=== PATIENT | female | born 1935 | race Caucasian/White ===

== ENCOUNTER 2016-11-21 08:32 | Observation (INO) | payer MEDICARE, OTHER ==
--- NOTE | 2016-11-21 09:07 | ERPHSYRPT ---
- History of Present Illness Time Seen by Provider: 11/21/16 08:59 Source: patient Exam Limitations: no limitations Patient Subjective Stated Complaint: Pt states she has had a cough, ROSALES, and been short of breath since yesterday. States she has been coughing stuff up but not sure what it looks like. She also states she has been feeling weak. Triage Nursing Assessment: Pt alert and oriented x3. skin pink warm and dry. afebrile. respirations easy and nonlabored. lung sounds clear and diminished Physician History: The patient is an 81-year-old female with her daughter complaining of a cough that was lasting all night. It was productive but she doesn't know what color the sputum was. She was short of breath this morning with exertion. She has been weak and short of breath for several days if not weeks. She denies chest pain. She denies wheezing. She denies shortness of breath when she lies flat on her back. Her past medical history is significant for A. fib, TIA, pneumonia , hypertension, congestive heart failure, high cholesterol, and hypothyroidism. Timing/Duration: yesterday Cough Quality/Degree: moderate, productive cough Possible Cause: occasional episodes Modifying Factors: Improves With: nothing Associated Symptoms: cough, shortness of breath Allergies/Adverse Reactions: cephalexin monohydrate [From Keflex] Allergy (Verified 11/21/16 08:43) clindamycin Allergy (Verified 11/21/16 08:43) diclofenac [Diclofenac] Allergy (Verified 11/21/16 08:43) latex Allergy (Verified 11/21/16 08:43) Home Medications: Bisoprolol Fumarate/Hctz [Ziac 10-6.25 mg Tablet] 1 each PO DAILY 07/07/13 [ History] Bumetanide 0.5 mg PO DAILY 07/07/13 [History] Ergocalciferol (Vitamin D2) [Vitamin D2] 1 tab PO WEEKLY 07/07/13 [History] Levothyroxine Sodium [Synthroid] 25 mcg PO DAILY 07/07/13 [History] Isosorbide Mononitrate 30 mg [Imdur 30 MG] 30 mg PO DAILY 01/31/14 [History ] Hydrocodone Bit/Acetaminophen [[place] 5-325 Tablet] 1 each PO Q4HPRN PRN [History] Magnesium Oxide 400 mg [Mag-Ox 400] 400 mg PO DAILY 02/09/16 [History] Potassium Chloride 20 Meq [Klor-Con 20 MEQ] 20 meq PO DAILY 02/09/16 [History] Apixaban [Eliquis] 5 mg PO DAILY 11/21/16 [History] Pravastatin Sodium 20 mg PO DAILY 11/21/16 [History] Hx Tetanus, Diphtheria Vaccination/Date Given: No Hx Influenza Vaccination/Date Given: Yes Hx Pneumococcal Vaccination/Date Given: Yes - Review of Systems Constitutional: No Fever, No Chills Eyes: No Symptoms Respiratory: Cough, Dyspnea on Exertion (KELLER) Cardiac: No Chest Pain, No Edema, No Syncope Abdominal/Gastrointestinal: No Abdominal Pain, No Nausea, No Vomiting, No Diarrhea Genitourinary Symptoms: No Dysuria Musculoskeletal: No Back Pain, No Neck Pain Skin: No Rash Neurological: No Dizziness, No Focal Weakness, No Sensory Changes Psychological: No Symptoms Endocrine: No Symptoms Hematologic/Lymphatic: No Symptoms Immunological/Allergic: No Symptoms All Other Systems: Reviewed and Negative - Past Medical History Pertinent Past Medical History: Yes Neurological History: No Pertinent History ENT History: No Pertinent History Cardiac History: Arrhythmia, High Cholesterol, Hypertension Respiratory History: Bronchitis, Pneumonia Endocrine Medical History: No Pertinent History Musculoskeletal History: Arthritis GI Medical History: No Pertinent History History: Other Psycho-Social History: No Pertinent History Female Reproductive Disorders: No Pertinent History Other Medical History: URINARY INCONTINENCE - Past Surgical History Past Surgical History: Yes Neuro Surgical History: No Pertinent History Cardiac: No Pertinent History Respiratory: No Pertinent History Gastrointestinal: Other Genitourinary: No Pertinent History Musculoskeletal: Orthopedic Surgery Female Surgical History: No Pertinent History Other Surgical History: HUMEROUS REPAIR, ROTATOR CUFF REPAIR. BLADDER TIE-UP. COLONOSCOPY MAR 04 - Social History Smoking Status: Never smoker Exposure to second hand smoke: No Drug Use: none Patient Lives Alone: No - Female History Hx Now: No - Nursing Vital Signs Nursing Vital Signs: Initial Vital Signs Temperature 98.5 F Temperature Source Oral Pulse Rate 71 Respiratory Rate 18 Blood Pressure [] 126/79 Pain Intensity 0 - Physical Exam General Appearance: no apparent distress, alert Eye Exam: PERRL/EOMI, eyes nml inspection Ears, Nose, Throat Exam: normal ENT inspection, TMs normal, pharynx normal, moist mucous membranes, other (hoarse voice) Neck Exam: normal inspection, non-tender, supple, full range of motion Respiratory Exam: normal breath sounds, lungs clear, No respiratory distress Cardiovascular Exam: irregular Gastrointestinal/Abdomen Exam: soft, No tenderness Pelvic Exam: not done Rectal Exam: not done Back Exam: normal inspection, No CVA tenderness, No vertebral tenderness Extremity Exam: normal inspection, normal range of motion, No pedal edema Neurologic Exam: alert, oriented x 3, cooperative, normal mood/affect, sensation nml, No motor deficits Skin Exam: normal color, warm, dry, No rash Lymphatic Exam: No adenopathy SpO2 Interpretation: normal SpO2: 95 Oxygen Delivery: Room Air - Radiology Exams Chest X-ray Interpretation: Interpreted by me, Other (pulmonary congestion with mild pleural effusion, comp cxr 02/09/16.) Ordered Tests: Active Orders 24 hr Category Date Time Status Bucket Operator STAT Care 11/21/16 08:48 Active IV Insertion STAT Care 11/21/16 08:48 Active Oxygen-ED Only NASAL CANNULA 2 lpm Care 11/21/16 10:33 Active CHEST 2 VIEWS (PA AND LAT) Stat Exams 11/21/16 09:11 Taken CBC W DIFF Stat Lab 11/21/16 09:00 Completed CMP Stat Lab 11/21/16 09:00 Completed Lactic Acid Stat Lab 11/21/16 10:00 Completed NT PRO BNP Stat Lab 11/21/16 09:00 Completed UA W/RFX UR CULTURE Stat Lab 11/21/16 09:37 Completed Medication Summary Discontinued Medications Generic Name Dose Route Start Last Admin Trade Name Freq PRN Reason Stop Dose Admin Furosemide 40 mg 11/21/16 09:59 11/21/16 10:06 Lasix 40 Mg/4 Ml IV 11/21/16 10:00 40 mg STAT ONE Administration Furosemide Confirm 11/21/16 10:05 Lasix 40 Mg/4 Ml Administered 11/21/16 10:06 Dose 40 mg .ROUTE .STK-MED ONE Lab/Rad Data: Laboratory Result Diagrams 11/21/16 09:00 11/21/16 09:00 Laboratory Results 11/21/16 11/21/16 11/21/16 Range/Units 10:00 09:37 09:00 WBC (4.0-10.5) K/mm3 RBC (4.1-5.4) M/mm3 Hgb (12.0-16.0) gm/dl Hct (35-47) % MCV (78-100) fl MCH (26-32) pg MCHC (32-36) g/dl RDW (11.5-14.0) % Plt Count (150-450) K/mm3 MPV (6-9.5) fl Gran % (36.0-66.0) % Lymphocytes % (24.0-44.0) % Monocytes % (0.0-12.0) % Eosinophils % (0.00-5.0) % Basophils % (0.0-0.4) % Basophils # (0-0.4) Sodium 141 (136-145) mEq/L Potassium 3.7 (3.5-5.1) mEq/L Chloride 105 (98-107) mEq/L Carbon Dioxide 25.4 (21-32) mEq/L Anion Gap 14.4 (5-15) MEQ/L BUN 21 H (9-20) mg/dL Creatinine 1.04 (0.55-1.30) mg/dl Estimated GFR 54 ML/MIN Glucose 131 H (70-110) MG/DL Lactic Acid 1.5 (0.4-2.0) Calcium 9.1 (8.5-10.1) mg/dL Total Bilirubin 1.00 (0.2-1.0) mg/dL AST 23 (15-37) U/L ALT 11 L (12-78) U/L Alkaline Phosphatase 65 (46-116) U/L NT-Pro-B Natriuret Pep 1544 H (0-450) pg/ml Serum Total Protein 7.8 (6.4-8.2) gm/dL Albumin 3.3 L (3.4-5.0) g/dL Ur Collection Type VOID Urine Color YELLOW (YELLOW) Urine Appearance CLEAR (CLEAR) Urine pH 6.0 (5-6) Ur Specific [place] 1.010 (1.005-1.025) Urine Protein NEGATIVE (Negative) Urine Glucose (UA) NEGATIVE (NEGATIVE) mg/dL Urine Ketones NEGATIVE (NEGATIVE) Urine Nitrite NEGATIVE (NEGATIVE) Urine Bilirubin NEGATIVE (NEGATIVE) Urine Urobilinogen 0.2 (0-1) mg/dL Urine WBC (Auto) NEGATIVE (NEGATIVE) Urine RBC (Auto) NEGATIVE (0-5) [place]/ul Specimen Received 11/21/16 0940 11/21/16 Range/Units 09:00 WBC 7.1 (4.0-10.5) K/mm3 RBC 3.94 L (4.1-5.4) M/mm3 Hgb 11.8 L (12.0-16.0) gm/dl Hct 36.1 (35-47) % MCV 91.6 (78-100) fl MCH 29.9 (26-32) pg MCHC 32.7 (32-36) g/dl RDW 14.2 H (11.5-14.0) % Plt Count 167 (150-450) K/mm3 MPV 10.1 H (6-9.5) fl Gran % 68.2 H (36.0-66.0) % Lymphocytes % 16.6 L (24.0-44.0) % Monocytes % 11.1 (0.0-12.0) % Eosinophils % 3.8 (0.00-5.0) % Basophils % 0.3 (0.0-0.4) % Basophils # 0.02 (0-0.4) Sodium (136-145) mEq/L Potassium (3.5-5.1) mEq/L Chloride (98-107) mEq/L Carbon Dioxide (21-32) mEq/L Anion Gap (5-15) MEQ/L BUN (9-20) mg/dL Creatinine (0.55-1.30) mg/dl Estimated GFR ML/MIN Glucose (70-110) MG/DL Lactic Acid (0.4-2.0) Calcium (8.5-10.1) mg/dL Total Bilirubin (0.2-1.0) mg/dL AST (15-37) U/L ALT (12-78) U/L Alkaline Phosphatase (46-116) U/L NT-Pro-B Natriuret Pep (0-450) pg/ml Serum Total Protein (6.4-8.2) gm/dL Albumin (3.4-5.0) g/dL Ur Collection Type Urine Color (YELLOW) Urine Appearance (CLEAR) Urine pH (5-6) Ur Specific [place] (1.005-1.025) Urine Protein (Negative) Urine Glucose (UA) (NEGATIVE) mg/dL Urine Ketones (NEGATIVE) Urine Nitrite (NEGATIVE) Urine Bilirubin (NEGATIVE) Urine Urobilinogen (0-1) mg/dL Urine WBC (Auto) (NEGATIVE) Urine RBC (Auto) (0-5) [place]/ul Specimen Received - Progress Progress: improved Air Movement: good Blood Culture(s) Obtained: No Antibiotics given: No Discussed with : Zhanna Ghosh Will see patient in: hospital (observation) Counseled pt/family regarding: lab results, diagnosis, rad results - Departure Time of Disposition: 11:56 Departure Disposition: Observation Clinical Impression: CHF (congestive heart failure) Condition: Stable Critical Care Time: No Instructions: Heart Failure Additional Instructions: You have shortness of breath that is caused by fluid overload that is mild in your lungs. You were given Lasix 40 mg IV in the ER. He will be admitted to the hospital.
[2016-11-21 09:17] LABS: BASOPHIL % 0.3 % (0.0-0.4); Eosinophil % 3.8 % (0.00-5.0); Granulocytes % 68.2 % (36.0-66.0); Lymphocytes % 16.6 % (24.0-44.0); Mean Cell Volume 91.6 fl (78-100); Mean Corpuscular Hemoglobin 29.9 pg (26-32); Mean Platelet Volume 10.1 fl (6-9.5); Monocytes % 11.1 % (0.0-12.0); Platelet Count 167 K/mm3 (150-450); Red Blood Count 3.94 M/mm3 (4.1-5.4); Red Cell Distribution Width 14.2 % (11.5-14.0); White Blood Count 7.1 K/mm3 (4.0-10.5)
[2016-11-21 09:32] LABS: ALBUMIN 3.3 g/dL (3.4-5.0); ANION GAP 14.4 MEQ/L (5-15); Carbon Dioxide 25.4 mEq/L (21-32); Potassium 3.7 mEq/L (3.5-5.1); Total Protein 7.8 gm/dL (6.4-8.2)
[2016-11-21 09:42] LABS: ADD URINE CULTURE? NO (NO); COMPLETE URINE MICROSCOPIC? NO; Collection Type VOID
[2016-11-21] MEDS ORDERED: Lasix 40 MG/4 ML IV ONE (09:59)
[2016-11-21] MEDS ORDERED: Lasix 40 MG/4 ML ONE (10:05)
[2016-11-21] MEDS ORDERED: Sodium Chloride 0.9% 10 ML FLUSH Syringe IV PRN (13:08)
[2016-11-21] MEDS: Sodium Chloride 0.9% 10 ML FLUSH Syringe IV SCH ×2 (13:20→22:44)
--- NOTE | 2016-11-21 16:07 | XRAY ---
Indication: Cough, weakness, and short of breath. Comparison: February 09, 2016. PA/lateral chest unchanged again hyperinflated with chronic lung markings and minimal bibasilar fibrosis/scarring. The heart is again borderline enlarged. Vascularity normal. Bony thorax intact again with osteopenia and degenerative changes. Impression: Stable nonacute chest with chronic features.
[2016-11-21] MEDS: Lasix 20 MG/2 ML IV SCH (17:26)
[2016-11-21] MEDS ORDERED: PROVENTIL 2.5 MG/3 ML NEB IH PRN (19:31)
[2016-11-21] MEDS ORDERED: NORCO 5/325 MG PO PRN (19:34)
[2016-11-21] MEDS: PROVENTIL 2.5 MG/3 ML NEB IH SCH (19:48)
[2016-11-21] MEDS: ZOCOR 20MG PO SCH (22:44)
[2016-11-21] MEDS: THERAGRAN MULTIVITAMIN PO SCH (22:44)
[2016-11-22 05:39] LABS: BASOPHIL % 0.4 % (0.0-0.4); Eosinophil % 4.1 % (0.00-5.0); Granulocytes % 63.6 % (36.0-66.0); Lymphocytes % 19.9 % (24.0-44.0); Mean Cell Volume 91.1 fl (78-100); Mean Corpuscular Hemoglobin 29.7 pg (26-32); Mean Platelet Volume 9.7 fl (6-9.5); Platelet Count 167 K/mm3 (150-450); Red Blood Count 4.04 M/mm3 (4.1-5.4); White Blood Count 7.3 K/mm3 (4.0-10.5)
[2016-11-22 06:04] LABS: ANION GAP 13.3 MEQ/L (5-15); BLOOD UREA NITROGEN 17 mg/dL (9-20); CHLORIDE 102 mEq/L (98-107); Carbon Dioxide 28.5 mEq/L (21-32); Glucose 108 MG/DL (70-110); Potassium 3.6 mEq/L (3.5-5.1); SODIUM 140 mEq/L (136-145)
--- NOTE | 2016-11-22 06:38 | PCM.HP ---
History of Present Illness - Chief Complaint Chief Complaint: c/o shortness of breath for 1-2 days History of Present Illness: The patient is an 81-year-old female with her daughter complaining of a cough that was lasting all night. It was productive but she doesn't know what color the sputum was. She was short of breath this morning with exertion. She has been weak and short of breath for several days if not weeks. She denies chest pain. She denies wheezing. She denies shortness of breath when she lies flat on her back. - Review of Systems Constitutional: No Fever, No Chills Eyes: No Symptoms Ears, Nose, & Throat: No Symptoms Respiratory: Cough, Orthopnea, Short Of Breath, Wheezing Cardiac: Orthopnea, No Chest Pain, No Edema, No Syncope Abdominal/Gastrointestinal: No Abdominal Pain, No Nausea, No Vomiting, No Diarrhea Genitourinary Symptoms: No Dysuria Musculoskeletal: No Back Pain, No Neck Pain Skin: No Rash Neurological: No Dizziness, No Focal Weakness, No Sensory Changes Psychological: No Symptoms Endocrine: No Symptoms Hematologic/Lymphatic: No Symptoms Immunological/Allergic: No Symptoms Medications & Allergies Home Medications: Home Medication List Bisoprolol Fumarate/Hctz [Ziac 10-6.25 mg Tablet] 1 each PO DAILY 07/07/13 [ History Confirmed 11/21/16] Bumetanide 0.5 mg PO DAILY 07/07/13 [History Confirmed 11/21/16] Ergocalciferol (Vitamin D2) [Vitamin D2] 1 tab PO WEEKLY 07/07/13 [History Confirmed 11/21/16] Levothyroxine Sodium [Synthroid] 25 mcg PO DAILY 07/07/13 [History Confirmed 09/04] Isosorbide Mononitrate 30 mg [Imdur 30 MG] 30 mg PO DAILY 01/31/14 [ History Confirmed 11/21/16] Hydrocodone Bit/Acetaminophen [[place] 5-325 Tablet] 1 each PO Q4HPRN PRN [History Confirmed 11/21/16] Magnesium Oxide 400 mg [Mag-Ox 400] 400 mg PO DAILY 02/09/16 [History Confirmed 11/21/16] Potassium Chloride 20 Meq [Klor-Con 20 MEQ] 20 meq PO DAILY 02/09/16 [History Confirmed 11/21/16] Apixaban [Eliquis] 5 mg PO DAILY 11/21/16 [History Confirmed 11/21/16] Multivitamin [Multivitamins] 1 each PO HS 11/21/16 [History Confirmed 11/21/16] Pravastatin Sodium 20 mg PO HS 11/21/16 [History Confirmed 11/21/16] Allergies/Adverse Reactions: Allergies Allergy/AdvReac Type Severity Reaction Status Date / Time cephalexin monohydrate Allergy Verified 11/21/16 08:43 [From Keflex] clindamycin Allergy Verified 11/21/16 08:43 diclofenac [Diclofenac] Allergy Verified 11/21/16 08:43 latex Allergy Verified 11/21/16 08:43 - Past Medical History Past Medical History: Yes Neurological History: No Pertinent History ENT History: No Pertinent History Cardiac History: Arrhythmia, High Cholesterol, Hypertension Respiratory History: Bronchitis, Pneumonia Endocrine Medical History: No Pertinent History Musculoskelatal History: Arthritis GI Medical History: No Pertinent History History: Other Pyscho-Social History: No Pertinent History Reproductive Disorders: No Pertinent History Comment: URINARY INCONTINENCE - Female History Are you now?: No - Past Surgical History Past Surgical History: Yes Neuro Surgical History: No Pertinent History Cardiac History: No Pertinent History Respiratory Surgery: No Pertinent History GI Surgical History: Other Genitourinary Surgical Hx: No Pertinent History Musculskeletal Surgical Hx: Orthopedic Surgery Female Surgical History: No Pertinent History Other Surgical History: HUMEROUS REPAIR, ROTATOR CUFF REPAIR. BLADDER TIE-UP. COLONOSCOPY FEB 14 - Social History Smoking Status: Never smoker Exposure to second hand smoke: No Alcohol: None Drug Use: none - Physical Exam Vital Signs: Vital Signs - 24 hr Temp Pulse Resp BP Pulse Ox 11/22/16 04:15 98.5 F 89 18 122/80 92 L 11/22/16 00:13 99.4 F 85 18 139/66 91 L 11/21/16 20:36 97.9 F 74 18 140/61 97 11/21/16 19:48 80 18 92 L 11/21/16 16:24 98.0 F 76 18 120/59 96 11/21/16 14:49 88 L 11/21/16 13:13 80 18 94 L 11/21/16 12:44 98.0 F 84 18 148/81 97 11/21/16 12:31 98.0 F 84 145/81 11/21/16 12:27 98.0 F 84 18 145/81 97 11/21/16 12:05 95 11/21/16 11:40 78 18 154/81 95 11/21/16 10:21 71 18 126/79 97 11/21/16 08:33 98.5 F 94 H 24 132/77 95 Oxygen-Last 24 hours O2 Percentage 3 Liters = 32% O2 Percentage 3 Liters = 32% O2 Percentage 3 Liters = 32% O2 Percentage 2 Liters = 28% O2 Percentage 2 Liters = 28% O2 Percentage 2 Liters = 28% General Appearance: no apparent distress, alert Neurologic Exam: alert, oriented x 3, cooperative, normal mood/affect, nml cerebellar function, nml station & gait, sensation nml, No motor deficits Eye Exam: PERRL/EOMI, eyes nml inspection Ears, Nose, Throat Exam: normal ENT inspection, TMs normal, pharynx normal, moist mucous membranes Neck Exam: normal inspection, non-tender, supple, full range of motion Respiratory Exam: wheezing, No respiratory distress Cardiovascular Exam: regular rate/rhythm, normal heart sounds, normal peripheral pulses Gastrointestinal/Abdomen Exam: soft, normal bowel sounds, No tenderness, No mass Back Exam: normal inspection, normal range of motion, No CVA tenderness, No vertebral tenderness Extremity Exam: normal inspection, normal range of motion, pelvis stable Skin Exam: normal color, warm, dry, No rash Lymphatic Exam: No adenopathy Results - Labs Lab/Micro Results: Lab Results-Last 24 Hours 11/22/16 11/22/16 Range/Units 05:20 05:20 WBC 7.3 (4.0-10.5) K/mm3 RBC 4.04 L (4.1-5.4) M/mm3 Hgb 12.0 (12.0-16.0) gm/dl Hct 36.8 (35-47) % MCV 91.1 (78-100) fl MCH 29.7 (26-32) pg MCHC 32.6 (32-36) g/dl RDW 14.0 (11.5-14.0) % Plt Count 167 (150-450) K/mm3 MPV 9.7 H (6-9.5) fl Gran % 63.6 (36.0-66.0) % Lymphocytes % 19.9 L (24.0-44.0) % Monocytes % 12.0 (0.0-12.0) % Eosinophils % 4.1 (0.00-5.0) % Basophils % 0.4 (0.0-0.4) % Basophils # 0.03 (0-0.4) Sodium 140 (136-145) mEq/L Potassium 3.6 (3.5-5.1) mEq/L Chloride 102 (98-107) mEq/L Carbon Dioxide 28.5 (21-32) mEq/L Anion Gap 13.3 (5-15) MEQ/L BUN 17 (9-20) mg/dL Creatinine 0.90 (0.55-1.30) mg/dl Estimated GFR > 60 ML/MIN Glucose 108 (70-110) MG/DL Calcium 9.1 (8.5-10.1) mg/dL - Other Procedures and Tests Respiratory Therapy 11/21/16 19:00 Respiratory Nebulizer QID 11/21/16 19:50 Respiratory Nebulizer PRN Assessment/Plan (1) CHF (congestive heart failure) Current Visit: Yes Status: Acute Qualifiers: Congestive heart failure type: combined Congestive heart failure chronicity : acute on chronic Qualified Code(s): I50.43 - Acute on chronic combined systolic (congestive) and diastolic (congestive) heart failure Assessment & Plan: Last Vital Signs Temp 98.5 F 11/22/16 04:15 Pulse 89 11/22/16 04:15 Resp 18 11/22/16 04:15 BP 122/80 11/22/16 04:15 Pulse Ox 92 L 11/22/16 04:15 Allergies cephalexin monohydrate [From Keflex] Allergy (Verified 11/21/16 08:43) clindamycin Allergy (Verified 11/21/16 08:43) diclofenac [Diclofenac] Allergy (Verified 11/21/16 08:43) latex Allergy (Verified 11/21/16 08:43) Active Medications Hydrocodone Bitart/Acetaminophen ([place] 5/325 Mg) 1 tab PO Q4H PRN PRN PRN Reason: PAIN Stop: 11/26/16 19:33 Albuterol Sulfate (Proventil 2.5 Mg/3 Ml Neb) 2.5 mg IH Q4H PRN PRN PRN Reason: SHORTNESS OF BREATH/WHEEZING Stop: 12/21/16 19:30 Albuterol Sulfate (Proventil 2.5 Mg/3 Ml Neb) 2.5 mg IH QIDRT [place] Stop: 12/22/16 06:59 Last Admin: 11/21/16 19:48 Dose: 2.5 mg Furosemide (Lasix 20 Mg/2 Ml) 20 mg IV BID DIURETIC [place] Stop: 12/21/16 16:59 Last Admin: 11/21/16 17:26 Dose: 20 mg Multivitamins (Theragran Multivitamin) 1 tab PO HS [place] Stop: 12/21/16 21:59 Last Admin: 11/21/16 22:44 Dose: 1 tab Pneumococcal 13-Valent Conj Vacc (Prevnar 13 Syringe) 0.5 ml IM .ONCE ONE Stop: 11/22/16 10:01 Simvastatin (Zocor 20mg) 20 mg PO [facility] Stop: 12/21/16 21:59 Last Admin: 11/21/16 22:44 Dose: 20 mg Sodium Chloride (Sodium Chloride 0.9% 10 Ml Flush Syringe) 10 ml IV Q8HT [place] Stop: 12/21/16 13:59 Last Admin: 11/21/16 22:44 Dose: 10 ml Sodium Chloride (Sodium Chloride 0.9% 10 Ml Flush Syringe) 10 ml IV PRN PRN Stop: 12/21/16 13:07 Intake & Output 11/21/16 11/22/16 11:59 11:59 Intake Total 1100 Output Total 1050 Balance 50 Weight 74.843 kg 78.103 kg Orders 11/21/16 13:37 Humidifier Attendant/Discharge Plan ROUTINE Nutritional Admission Screen once Lab Tests 11/21/16 11/21/16 11/21/16 09:00 09:00 09:37 WBC 7.1 RBC 3.94 L Hgb 11.8 L Hct 36.1 MCV 91.6 MCH 29.9 MCHC 32.7 RDW 14.2 H Plt Count 167 MPV 10.1 H Gran % 68.2 H Lymphocytes % 16.6 L Monocytes % 11.1 Eosinophils % 3.8 Basophils % 0.3 Basophils # 0.02 Sodium 141 Potassium 3.7 Chloride 105 Carbon Dioxide 25.4 Anion Gap 14.4 BUN 21 H Creatinine 1.04 Estimated GFR 54 Glucose 131 H Lactic Acid Calcium 9.1 Total Bilirubin 1.00 AST 23 ALT 11 L Alkaline Phosphatase 65 NT-Pro-B Natriuret Pep 1544 H Serum Total Protein 7.8 Albumin 3.3 L Ur Collection Type VOID Urine Color YELLOW Urine Appearance CLEAR Urine pH 6.0 Ur Specific [place] 1.010 Urine Protein NEGATIVE Urine Glucose (UA) NEGATIVE Urine Ketones NEGATIVE Urine Nitrite NEGATIVE Urine Bilirubin NEGATIVE Urine Urobilinogen 0.2 Urine WBC (Auto) NEGATIVE Urine RBC (Auto) NEGATIVE Specimen Received 11/21/16 0940 11/21/16 11/22/16 11/22/16 10:00 05:20 05:20 WBC 7.3 RBC 4.04 L Hgb 12.0 Hct 36.8 MCV 91.1 MCH 29.7 MCHC 32.6 RDW 14.0 Plt Count 167 MPV 9.7 H Gran % 63.6 Lymphocytes % 19.9 L Monocytes % 12.0 Eosinophils % 4.1 Basophils % 0.4 Basophils # 0.03 Sodium 140 Potassium 3.6 Chloride 102 Carbon Dioxide 28.5 Anion Gap 13.3 BUN 17 Creatinine 0.90 Estimated GFR > 60 Glucose 108 Lactic Acid 1.5 Calcium 9.1 Total Bilirubin AST ALT Alkaline Phosphatase NT-Pro-B Natriuret Pep Serum Total Protein Albumin Ur Collection Type Urine Color Urine Appearance Urine pH Ur Specific [place] Urine Protein Urine Glucose (UA) Urine Ketones Urine Nitrite Urine Bilirubin Urine Urobilinogen Urine WBC (Auto) Urine RBC (Auto) Specimen Received Code(s): I50.9 - HEART FAILURE, UNSPECIFIED (2) Exertional dyspnea Current Visit: Yes Status: Acute Code(s): R06.09 - OTHER FORMS OF DYSPNEA
[2016-11-22] MEDS: PROVENTIL 2.5 MG/3 ML NEB IH SCH ×4 (07:19→19:24)
[2016-11-22] MEDS ORDERED: ERGOCALCIFEROL PO SCH (08:00)
[2016-11-22] MEDS ORDERED: MEDICATION INTERVENTION MC PRN (09:08)
[2016-11-22] MEDS: Imdur 30 MG PO SCH (09:42)
[2016-11-22] MEDS: ELIQUIS PO SCH (09:42)
[2016-11-22] MEDS: SYNTHROID 25 MCG PO SCH (09:42)
[2016-11-22] MEDS: MAG-OX 400 PO SCH (09:42)
[2016-11-22] MEDS: Klor Con 10 MEQ PO SCH (09:42)
[2016-11-22] MEDS: Lasix 20 MG/2 ML IV SCH ×2 (09:43→16:45)
[2016-11-22] MEDS ORDERED: BISOPROLOL FUMARATE PO SCH (10:00)
[2016-11-22] MEDS ORDERED: VITAMIN D PO SCH (10:00)
[2016-11-22] MEDS ORDERED: PREVNAR 13 SYRINGE IM ONE (10:00)
[2016-11-22] MEDS ORDERED: NON-FORMULARY ITEM (Potassium Chloride 20 Meq [Klor-Con 20 Meq] 20 MEQ) PO SCH (10:00)
[2016-11-22] MEDS ORDERED: HCTZ PO SCH (10:00)
[2016-11-22] MEDS: Sodium Chloride 0.9% 10 ML FLUSH Syringe IV SCH ×3 (10:54→22:56)
[2016-11-22] MEDS: Tessalon Perles 100 MG PO PRN (16:13)
[2016-11-22] MEDS: THERAGRAN MULTIVITAMIN PO SCH (22:56)
[2016-11-22] MEDS: ZOCOR 20MG PO SCH (22:56)
[2016-11-23] MEDS: Tessalon Perles 100 MG PO PRN (05:21)
[2016-11-23] MEDS: PROVENTIL 2.5 MG/3 ML NEB IH SCH (06:21)
[2016-11-23] MEDS: Imdur 30 MG PO SCH (09:54)
[2016-11-23] MEDS: ELIQUIS PO SCH (09:54)
[2016-11-23] MEDS: Klor Con 10 MEQ PO SCH (09:54)
[2016-11-23] MEDS: SYNTHROID 25 MCG PO SCH (09:54)
[2016-11-23] MEDS: MAG-OX 400 PO SCH (09:54)
[2016-11-23] MEDS: Lasix 20 MG/2 ML IV SCH (09:55)
[2016-11-23 11:31] VITALS: BP 120/58; PULSE 103; O2SAT 93
--- NOTE | 2016-11-23 14:10 | PCM.DS ---
Discharge Summary Date of Admission: 11/21/16 12:20 Admitting Physician: RAUL GAYTAN Primary Care Provider: RAUL GAYTAN Allergies Allergies cephalexin monohydrate [From Keflex] Allergy (Verified 11/21/16 08:43) clindamycin Allergy (Verified 11/21/16 08:43) diclofenac [Diclofenac] Allergy (Verified 11/21/16 08:43) latex Allergy (Verified 11/21/16 08:43) Hospital Summary - Hospital Course Hospital Course: Chief Complaint Diagnosis c/o shortness of breath for 1-2 days Allergies Allergy/AdvReac Type Severity Reaction Status Date / Time cephalexin monohydrate Allergy Verified 11/21/16 08:43 [From Keflex] clindamycin Allergy Verified 11/21/16 08:43 diclofenac [Diclofenac] Allergy Verified 11/21/16 08:43 latex Allergy Verified 11/21/16 08:43 Vital Signs (Last 24 hours) Temp Pulse Resp BP Pulse Ox 11/23/16 11:30 98.4 F 103 H 18 120/58 93 L 11/23/16 10:59 100 H 18 95 11/23/16 06:59 98.5 F 106 H 18 122/57 96 11/23/16 06:21 104 H 18 97 11/23/16 04:25 97.8 F 110 H 24 142/66 95 11/23/16 04:00 25 H 95 11/22/16 23:50 98.1 F 111 H 25 H 128/60 95 11/22/16 19:58 97.9 F 95 H 20 133/61 95 11/22/16 16:00 98.4 F 96 H 18 135/81 93 L 11/22/16 15:31 82 18 96 Home Medications Medication Instructions Recorded Confirmed Last Taken Type Apixaban [Eliquis] 5 mg PO DAILY 11/21/16 11/21/16 11/21/16 History Multivitamin [Multivitamins] 1 each PO 11/21/16 11/21/16 11/21/16 History Pravastatin Sodium 20 mg PO 11/21/16 11/21/16 11/20/16 History Current Medications Generic Name Dose Route Start Last Admin Trade Name Freq PRN Reason Stop Dose Admin Hydrocodone Bitart/Acetaminophen 1 tab 11/21/16 19:34 [place] 5/325 Mg PO 11/26/16 19:33 Q4H PRN PRN PAIN Albuterol Sulfate 2.5 mg 11/21/16 19:31 Proventil 2.5 Mg/3 Ml Neb IH 12/21/16 19:30 Q4H PRN PRN SHORTNESS OF BREATH/WHEEZING Apixaban 5 mg 11/22/16 10:00 11/23/16 09:54 Eliquis PO 12/22/16 09:59 5 mg DAILY AUGUSTIN Administration Benzonatate 100 mg 11/22/16 14:43 11/23/16 05:21 Tessalon Perles 100 Mg PO 12/22/16 14:42 100 mg TID PRN PRN Administration COUGH Cholecalciferol 2,000 unit 11/22/16 10:00 11/22/16 09:43 Vitamin D PO 12/22/16 09:59 2,000 unit Calderon AUGUSTIN Administration Furosemide 20 mg 11/21/16 17:00 11/23/16 09:55 Lasix 20 Mg/2 Ml IV 12/21/16 16:59 20 mg BID DIURETIC AUGUSTIN Administration Isosorbide Mononitrate 30 mg 11/22/16 10:00 11/23/16 09:54 Imdur 30 Mg PO 12/22/16 09:59 30 mg DAILY AUGUSTIN Administration Levothyroxine Sodium 25 mcg 11/22/16 10:00 11/23/16 09:54 Synthroid 25 Mcg PO 12/22/16 09:59 25 mcg DAILY AUGUSTIN Administration Magnesium Oxide 400 mg 11/22/16 10:00 11/23/16 09:54 Mag-Ox 400 PO 12/22/16 09:59 400 mg DAILY AUGUSTIN Administration Multivitamins 1 tab 11/21/16 22:00 11/22/16 22:56 Theragran Multivitamin PO 12/21/16 21:59 1 tab HS AUGUSTIN Administration Potassium Chloride 20 meq 11/22/16 10:00 11/23/16 09:54 Klor Con 10 Meq PO 12/22/16 09:59 20 meq DAILY AUGUSTIN Administration Simvastatin 20 mg 11/21/16 22:00 11/22/16 22:56 Zocor 20mg PO 12/21/16 21:59 20 mg HS AUGUSTIN Administration Sodium Chloride 10 ml 11/21/16 14:00 11/22/16 22:56 Sodium Chloride 0.9% 10 Ml Flush Syringe IV 12/21/16 13:59 10 ml Q8HT AUGUSTIN Administration Sodium Chloride 10 ml 11/21/16 13:08 11/23/16 09:57 Sodium Chloride 0.9% 10 Ml Flush Syringe IV 12/21/16 13:07 10 ml PRN PRN Administration Discontinued Medications Generic Name Dose Route Start Last Admin Trade Name Freq PRN Reason Stop Dose Admin Albuterol Sulfate 2.5 mg 11/22/16 07:00 11/23/16 06:21 Proventil 2.5 Mg/3 Ml Neb IH 12/22/16 06:59 2.5 mg QIDRT AUGUSTIN Administration Furosemide 40 mg 11/21/16 09:59 11/21/16 10:06 Lasix 40 Mg/4 Ml IV 11/21/16 10:00 40 mg STAT ONE Administration Furosemide Confirm 11/21/16 10:05 Lasix 40 Mg/4 Ml Administered 11/21/16 10:06 Dose 40 mg .ROUTE .STK-MED ONE Pneumococcal 13-Valent Conj Vacc 0.5 ml 11/22/16 10:00 11/22/16 09:43 Prevnar 13 Syringe IM 11/22/16 10:01 0.5 ml .ONCE ONE Administration Intake & Output (Last 24 hours) 11/21/16 11/22/16 11/23/16 11/24/16 11:59 11:59 11:59 11:59 Intake Total 1580 1600 280 Output Total 1350 800 200 Balance 230 800 80 Weight 74.843 kg 78.103 kg 78.103 kg Orders (Last 24 hours) Category Date Time Status Benzonatate 100 mg [Tessalon Perles 100 MG] Med 11/22/16 14:43 Active 100 mg PO TID PRN PRN Patient Care Notes (Last 24 hours) 11/23/16 09:28 Case Management Note by Elle Conley DISCHARGE PLAN REVIEWED, CONTINUES TO PLAN TO RETURN HOME TO PRE EPISODIC LEVEL OF [facility]. LIVES AT HOME WITH AND INDEPENDENT WITH ALL ADL'S. Initialized on 11/23/16 09:28 - END OF NOTE 11/22/16 17:00 (created 11/22/16 19:24) Nursing Note by Daniela Lopez Noted less cough. Initialized on 11/22/16 19:24 - END OF NOTE 11/22/16 14:44 Nursing Note by Daniela Lopez Called Dr Laguerre concerning pt's c/o cough. New order received. Initialized on 11/22/16 14:44 - END OF NOTE - Vitals & Intake/Output Vital Signs: Vital Signs Temperature 98.4 F 11/23/16 11:30 Pulse Rate 103 H 11/23/16 11:30 Respiratory Rate 18 11/23/16 11:30 Blood Pressure 120/58 11/23/16 11:30 O2 Sat by Pulse Oximetry 93 L 11/23/16 11:30 Oxygen-Last Documented O2 Percentage 2 Liters = 28% Intake & Output: Intake & Output 11/21/16 11/22/16 11/23/16 11/24/16 11:59 11:59 11:59 11:59 Intake Total 1580 1600 280 Output Total 1350 800 200 Balance 230 800 80 Weight 78.103 kg 78.103 kg - Lab Result Diagrams: 11/22/16 05:20 11/22/16 05:20 - Procedures and Test Procedures and Tests throughout Hospitalization: Therapy Orders & Screens 11/21/16 19:50 Respiratory Nebulizer PRN Comment: ALBUTEROL Q4PRN FOR SOB/WHEEZING Diagnosis: CHF 11/21/16 19:51 Respiratory Therapy Consult ROUTINE Comment: Reason For Exam: Diagnosis: CHF Discharge Exam General Appearance: no apparent distress, alert Neurologic Exam: alert, oriented x 3, cooperative, normal mood/affect, nml cerebellar function, sensation nml, No motor deficits Skin Exam: normal color, warm, dry Eye Exam: PERRL, EOMI, eyes nml inspection Ears, Nose, Throat Exam: normal ENT inspection, pharynx normal, moist mucous membranes Neck Exam: normal inspection, non-tender, supple, full range of motion Respiratory Exam: normal breath sounds, lungs clear, No respiratory distress Cardiovascular Exam: regular rate/rhythm, normal heart sounds Gastrointestinal/Abdomen Exam: soft, No tenderness, No mass Extremity Exam: normal inspection, normal range of motion Back Exam: normal inspection, normal range of motion, No CVA tenderness, No vertebral tenderness Pelvic Exam: deferred Rectal Exam: deferred Final Diagnosis/Problem List - Final Discharge Diagnosis/Problem (1) CHF (congestive heart failure) Current Visit: Yes Status: Resolved (2) Exertional dyspnea Current Visit: Yes Status: Resolved - Discharge Discharge Date: 11/23/16 Disposition: Home, Self-Care Condition: Stable Prescriptions: No Action Bumetanide 0.5 mg PO DAILY Levothyroxine Sodium [Synthroid] 25 mcg PO DAILY Bisoprolol Fumarate/Hctz [Ziac 10-6.25 mg Tablet] 1 each PO DAILY Ergocalciferol (Vitamin D2) [Vitamin D2] 1 tab PO WEEKLY Isosorbide Mononitrate 30 mg [Imdur 30 MG] 30 mg PO DAILY Magnesium Oxide 400 mg [Mag-Ox 400] 400 mg PO DAILY Potassium Chloride 20 Meq [Klor-Con 20 MEQ] 20 meq PO DAILY Hydrocodone Bit/Acetaminophen [[place] 5-325 Tablet] 1 each PO Q4HPRN PRN PRN Reason: Pain Pravastatin Sodium 20 mg PO HS Apixaban [Eliquis] 5 mg PO DAILY Multivitamin [Multivitamins] 1 each PO HS Instructions: Heart Failure Additional Instructions: Follow up with at [facility] Follow up with: RAUL GAYTAN MD [Primary Care Provider] - 11/30/16 11:15 am Forms: Discharge Instructions
== END 2016-11-23 14:55 | disposition home or self-care (01) ==
LOC: ED 08:32 → MED SURG 12:20
PROVIDERS: ADMIT General Practice; ATTEND General Practice
DX: I50.43 Acute on chronic combined systolic (congestive) and diastolic (congestive) heart failure (principal); I10 Essential (primary) hypertension; E78.00 Pure hypercholesterolemia, unspecified; M19.90 Unspecified osteoarthritis, unspecified site; I48.91 Unspecified atrial fibrillation; Z79.01 Long term (current) use of anticoagulants; Z86.73 Personal history of transient ischemic attack (TIA), and cerebral infarction without residual deficits; E03.9 Hypothyroidism, unspecified; Z79.899 Other long term (current) drug therapy; Z23 Encounter for immunization
CPT/HCPCS: 36000; 36415; 71020; 80048; 80053; 81002; 83605; 83880; 85025; 90670; 93041; 93268; 94640; 94760; 96374; 99285; G0009; G0378; J1940; A9270-GY

== ENCOUNTER 2016-12-19 19:51 | Observation (INO) | payer MEDICARE, OTHER ==
[2016-12-19] MEDS ORDERED: BABY ASPIRIN 81 MG CHEW PO ONE (20:12)
--- NOTE | 2016-12-19 20:12 | ERPHSYRPT ---
- History of Present Illness Time Seen by Provider: 12/19/16 20:07 Historian: patient, family Exam Limitations: no limitations Physician History: 81 yr old female reports that she was in hosp 1 month ago for CHF- no hx of procedures, but developed CP today momentary x 2 and no CP now; now no symptoms but came to be evaluated. Timing/Duration: today Activities at Onset: none Quality: sharpness, stabbing Location: shoulder Chest Pain Radiation: arm Severity of Pain-Max: moderate Severity of Pain-Current: moderate Modifying Factors: Improves With: nothing Associated Symptoms: denies symptoms Prior Chest Pain/Cardiac Workup: no prior chest pain, recently seen/treated, recent hospitalization Nitro Today/Relief: no nitro taken today Aspirin Treatment Today: 81 mg x 4, provided by ED Allergies/Adverse Reactions: cephalexin monohydrate [From Keflex] Allergy (Verified 12/19/16 20:14) clindamycin Allergy (Verified 12/19/16 20:14) diclofenac [Diclofenac] Allergy (Verified 12/19/16 20:14) latex Allergy (Verified 12/19/16 20:14) Home Medications: Bisoprolol Fumarate/Hctz [Ziac 10-6.25 mg Tablet] 1 each PO DAILY 07/07/13 [ History] Bumetanide 1 mg PO DAILY 07/07/13 [History] Ergocalciferol (Vitamin D2) [Vitamin D2] 1 tab PO WEEKLY 07/07/13 [History] Levothyroxine Sodium [Synthroid] 25 mcg PO DAILY 07/07/13 [History] Isosorbide Mononitrate 30 mg [Imdur 30 MG] 30 mg PO DAILY 01/31/14 [History ] Hydrocodone Bit/Acetaminophen [[place] 5-325 Tablet] 1 each PO Q4HPRN PRN [History] Magnesium Oxide 400 mg [Mag-Ox 400] 400 mg PO HS 02/09/16 [History] Potassium Chloride 20 Meq [Klor-Con 20 MEQ] 20 meq PO DAILY 02/09/16 [History] Apixaban [Eliquis] 5 mg PO DAILY 11/21/16 [History] Multivitamin [Multivitamins] 1 each PO HS 11/21/16 [History] Pravastatin Sodium 20 mg PO HS 11/21/16 [History] Hx Tetanus, Diphtheria Vaccination/Date Given: No Hx Influenza Vaccination/Date Given: Yes Hx Pneumococcal Vaccination/Date Given: Yes - Review of Systems Constitutional: No Fever, No Chills Eyes: No Symptoms Ears, Nose, & Throat: No Symptoms Respiratory: No Cough, No Dyspnea Cardiac: Chest Pain, No Edema, No Syncope Abdominal/Gastrointestinal: No Abdominal Pain, No Nausea, No Vomiting, No Diarrhea Genitourinary Symptoms: No Dysuria Musculoskeletal: No Back Pain, No Neck Pain Skin: No Rash Neurological: No Dizziness, No Focal Weakness, No Sensory Changes Psychological: No Symptoms Endocrine: No Symptoms All Other Systems: Reviewed and Negative - Past Medical History Pertinent Past Medical History: Yes Neurological History: No Pertinent History ENT History: No Pertinent History Cardiac History: Arrhythmia, High Cholesterol, Hypertension Respiratory History: Bronchitis, Pneumonia Endocrine Medical History: No Pertinent History Musculoskeletal History: Arthritis GI Medical History: No Pertinent History History: Other Psycho-Social History: No Pertinent History Female Reproductive Disorders: No Pertinent History Other Medical History: URINARY INCONTINENCE - Past Surgical History Past Surgical History: Yes Neuro Surgical History: No Pertinent History Cardiac: No Pertinent History Respiratory: No Pertinent History Gastrointestinal: Other Genitourinary: No Pertinent History Musculoskeletal: Orthopedic Surgery Female Surgical History: No Pertinent History Other Surgical History: HUMEROUS REPAIR, ROTATOR CUFF REPAIR. BLADDER TIE-UP. COLONOSCOPY MAR 04 - Social History Smoking Status: Never smoker Exposure to second hand smoke: No Drug Use: none Patient Lives Alone: No - Female History Hx Now: No - Nursing Vital Signs Nursing Vital Signs: Initial Vital Signs Temperature 97.9 F Temperature Source Oral Pulse Rate [] 86 Pulse Rate 91 Respiratory Rate 14 Blood Pressure [] 152/68 Pain Intensity 0 - Physical Exam General Appearance: no apparent distress, alert Eye Exam: PERRL/EOMI, eyes nml inspection Ears, Nose, Throat Exam: normal ENT inspection, moist mucous membranes Neck Exam: normal inspection, non-tender, supple, full range of motion Respiratory Exam: normal breath sounds, lungs clear, No respiratory distress Cardiovascular Exam: regular rate/rhythm, normal heart sounds, edema Gastrointestinal/Abdomen Exam: soft, No tenderness, No mass Pelvic Exam: deferred Rectal Exam: deferred Back Exam: normal inspection, No CVA tenderness, No vertebral tenderness Extremity Exam: normal inspection, normal range of motion Neurologic Exam: alert, oriented x 3, cooperative, normal mood/affect, sensation nml, No motor deficits Skin Exam: normal color, warm, dry SpO2: 93 Oxygen Delivery: Room Air - Course Nursing assessment & vital signs reviewed: Yes EKG Interpreted by Me: Sinus Rhythm, NORMAL AXIS (lateral inverted biphasic Ts sim to previous, slightly more.), Non-specific ST Changes - Radiology Exams Chest X-ray Interpretation: Reviewed by me, Other (moderate cardiomegally with mild venous congestion.) Ordered Tests: Active Orders 24 hr Category Date Time Status Clean Catch Urine Specimen STAT Care 12/19/16 20:12 Active EKG-ER Only STAT Care 12/19/16 20:12 Active IV Insertion STAT Care 12/19/16 20:12 Active CHEST 1 VIEW (PORTABLE) Stat Exams 12/19/16 20:13 Taken CBC W DIFF Stat Lab 12/19/16 20:20 Completed CMP Stat Lab 12/19/16 20:20 Completed Lactic Acid Urgent Lab 12/19/16 20:20 Completed NT PRO BNP Stat Lab 12/19/16 20:20 Completed TROPONIN Q3H Lab 12/19/16 20:20 Completed TROPONIN Q3H Lab 12/19/16 23:15 Ordered TROPONIN Q3H Lab 12/20/16 02:15 Ordered TROPONIN Q3H Lab 12/20/16 05:15 Ordered TROPONIN Q3H Lab 12/20/16 08:15 Ordered UA W/RFX UR CULTURE Stat Lab 12/19/16 21:00 Completed Medication Summary Generic Name Dose Route Start Last Admin Trade Name Freq PRN Reason Stop Dose Admin Sodium Chloride 1,000 mls @ 50 mls/hr 12/19/16 20:15 12/19/16 20:31 Sodium Chloride 0.9% 1000 Ml IV 01/18/17 20:14 50 mls/hr .Q20H AUGUSTIN Administration Discontinued Medications Generic Name Dose Route Start Last Admin Trade Name Freq PRN Reason Stop Dose Admin Aspirin 324 mg 12/19/16 20:12 12/19/16 20:31 Baby Aspirin 81 Mg Chew PO 12/19/16 20:13 324 mg STAT ONE Administration Aspirin Confirm 12/19/16 20:29 Baby Aspirin 81 Mg Chew Administered 12/19/16 20:30 Dose 324 mg .ROUTE [facility] ONE Lab/Rad Data: Laboratory Result Diagrams 12/19/16 20:20 12/19/16 20:20 Laboratory Results 12/19/16 12/19/16 12/19/16 Range/Units 21:00 20:20 20:20 WBC (4.0-10.5) K/mm3 RBC (4.1-5.4) M/mm3 Hgb (12.0-16.0) gm/dl Hct (35-47) % MCV (78-100) fl MCH (26-32) pg MCHC (32-36) g/dl RDW (11.5-14.0) % Plt Count (150-450) K/mm3 MPV (6-9.5) fl Gran % (36.0-66.0) % Lymphocytes % (24.0-44.0) % Monocytes % (0.0-12.0) % Eosinophils % (0.00-5.0) % Basophils % (0.0-0.4) % Basophils # (0-0.4) Sodium (136-145) mEq/L Potassium (3.5-5.1) mEq/L Chloride (98-107) mEq/L Carbon Dioxide (21-32) mEq/L Anion Gap (5-15) MEQ/L BUN (9-20) mg/dL Creatinine (0.55-1.30) mg/dl Estimated GFR ML/MIN Glucose (70-110) MG/DL Lactic Acid 1.5 (0.4-2.0) Calcium (8.5-10.1) mg/dL Total Bilirubin (0.2-1.0) mg/dL AST (15-37) U/L ALT (12-78) U/L Alkaline Phosphatase (46-116) U/L Troponin I 0.025 (0.000-0.056) ng/ml NT-Pro-B Natriuret Pep (0-450) pg/ml Serum Total Protein (6.4-8.2) gm/dL Albumin (3.4-5.0) g/dL Ur Collection Type CLEAN CATCH Urine Color YELLOW (YELLOW) Urine Appearance CLEAR (CLEAR) Urine pH 6.0 (5-6) Ur Specific [place] 1.010 (1.005-1.025) Urine Protein NEGATIVE (Negative) Urine Ketones NEGATIVE (NEGATIVE) Urine Blood NEGATIVE (0-5) [place]/ul Urine Nitrite NEGATIVE (NEGATIVE) Urine Bilirubin NEGATIVE (NEGATIVE) Urine Urobilinogen NORMAL (0-1) mg/dL Ur Leukocyte Esterase NEGATIVE (NEGATIVE) Urine Glucose NEGATIVE (NEGATIVE) mg/dL Specimen Received 12/19/16 2100 12/19/16 12/19/16 Range/Units 20:20 20:20 WBC 6.0 (4.0-10.5) K/mm3 RBC 4.28 (4.1-5.4) M/mm3 Hgb 12.7 (12.0-16.0) gm/dl Hct 38.4 (35-47) % MCV 89.7 (78-100) fl MCH 29.7 (26-32) pg MCHC 33.1 (32-36) g/dl RDW 14.0 (11.5-14.0) % Plt Count 188 (150-450) K/mm3 MPV 10.3 H (6-9.5) fl Gran % 51.4 (36.0-66.0) % Lymphocytes % 30.7 (24.0-44.0) % Monocytes % 12.5 H (0.0-12.0) % Eosinophils % 4.7 (0.00-5.0) % Basophils % 0.7 (0.0-0.4) % Basophils # 0.04 (0-0.4) Sodium 140 (136-145) mEq/L Potassium 3.5 (3.5-5.1) mEq/L Chloride 101 (98-107) mEq/L Carbon Dioxide 26.9 (21-32) mEq/L Anion Gap 15.2 H (5-15) MEQ/L BUN 15 (9-20) mg/dL Creatinine 1.08 (0.55-1.30) mg/dl Estimated GFR 52 ML/MIN Glucose 105 (70-110) MG/DL Lactic Acid (0.4-2.0) Calcium 9.4 (8.5-10.1) mg/dL Total Bilirubin 0.50 (0.2-1.0) mg/dL AST 44 H (15-37) U/L ALT 20 (12-78) U/L Alkaline Phosphatase 74 (46-116) U/L Troponin I (0.000-0.056) ng/ml NT-Pro-B Natriuret Pep 1357 H (0-450) pg/ml Serum Total Protein 8.1 (6.4-8.2) gm/dL Albumin 3.6 (3.4-5.0) g/dL Ur Collection Type Urine Color (YELLOW) Urine Appearance (CLEAR) Urine pH (5-6) Ur Specific [place] (1.005-1.025) Urine Protein (Negative) Urine Ketones (NEGATIVE) Urine Blood (0-5) [place]/ul Urine Nitrite (NEGATIVE) Urine Bilirubin (NEGATIVE) Urine Urobilinogen (0-1) mg/dL Ur Leukocyte Esterase (NEGATIVE) Urine Glucose (NEGATIVE) mg/dL Specimen Received - Progress Progress: improved, re-examined Air Movement: good Progress Note: 12/19/16 21:[address] Irizarry and family and all agree best for pt to be in hosp and preferred [facility] after discussion with and Dr. Ethan knott [place]. Blood Culture(s) Obtained: No Antibiotics given: No Discussed with : Other (Dr Irizarry) Will see patient in: hospital (observation) Counseled pt/family regarding: lab results, diagnosis, need for follow-up, rad results - Departure Time of Disposition: 21:22 Departure Disposition: Observation Clinical Impression: Elevated troponin level, mild CHF Condition: Good Critical Care Time: No
[2016-12-19] MEDS ORDERED: Sodium Chloride 0.9% 1000 ML 1,000 ML IV SCH (20:15)
[2016-12-19 20:23] LABS: BASOPHIL % 0.7 % (0.0-0.4); Eosinophil % 4.7 % (0.00-5.0); Granulocytes % 51.4 % (36.0-66.0); Lymphocytes % 30.7 % (24.0-44.0); Mean Cell Volume 89.7 fl (78-100); Mean Corpuscular Hemoglobin 29.7 pg (26-32); Mean Platelet Volume 10.3 fl (6-9.5); Monocytes % 12.5 % (0.0-12.0); Platelet Count 188 K/mm3 (150-450); Red Blood Count 4.28 M/mm3 (4.1-5.4)
[2016-12-19] MEDS ORDERED: BABY ASPIRIN 81 MG CHEW ONE (20:29)
[2016-12-19 20:47] LABS: ALBUMIN 3.6 g/dL (3.4-5.0); ANION GAP 15.2 MEQ/L (5-15); BILIRUBIN,TOTAL 0.5 mg/dL (0.2-1.0); Carbon Dioxide 26.9 mEq/L (21-32); Potassium 3.5 mEq/L (3.5-5.1); Total Protein 8.1 gm/dL (6.4-8.2)
[2016-12-19 21:04] LABS: ADD URINE CULTURE? NO (NO); Bilirubin NEGATIVE (NEGATIVE); Blood NEGATIVE Ery/ul (0-5); COMPLETE URINE MICROSCOPIC? NO; Collection Type CLEAN CATCH; Glucose NEGATIVE (NEGATIVE); Leukocyte Esterase NEGATIVE (NEGATIVE)
[2016-12-19] MEDS ORDERED: TYLENOL 325 MG PO PRN (22:00)
[2016-12-19] MEDS ORDERED: MAALOX ES 30 ML UNIT DOSE PO PRN (22:00)
[2016-12-19] MEDS ORDERED: MILK OF MAGNESIA 30 ML PO PRN (22:00)
[2016-12-19] MEDS ORDERED: Zofran 4 MG/2 ML VIAL IV PRN (22:00)
[2016-12-19] MEDS ORDERED: Senokot-S Tablet PO PRN (22:00)
[2016-12-20 06:03] LABS: Mean Cell Volume 91.2 fl (78-100); Mean Platelet Volume 10.4 fl (6-9.5); Platelet Count 159 K/mm3 (150-450); Red Blood Count 3.86 M/mm3 (4.1-5.4); White Blood Count 5.1 K/mm3 (4.0-10.5)
[2016-12-20 06:32] LABS: ANION GAP 12.8 MEQ/L (5-15); BLOOD UREA NITROGEN 14 mg/dL (9-20); CHLORIDE 104 mEq/L (98-107); Carbon Dioxide 28.9 mEq/L (21-32); Cholesterol 136 mg/dL (100-200); Glucose 103 MG/DL (70-110); LDL, DIRECT 81 mg/dL (5-99); Potassium 3.6 mEq/L (3.5-5.1); SODIUM 142 mEq/L (136-145); TRIGLYCERIDE 91 mg/dL (30-200)
--- NOTE | 2016-12-20 08:27 | XRAY ---
Indication: Chest pain. Comparison: November 21, 2016. Portable chest unchanged again hyperinflated with chronic lung markings. No focal infiltrate, consolidation, or large effusion. Heart is borderline enlarged. Bony thorax intact again with osteopenia, degenerative changes, and old right humeral head deformity. Impression: Stable nonacute chest with chronic features.
[2016-12-20] MEDS ORDERED: Ecotrin 325 MG PO SCH (10:00)
--- NOTE | 2016-12-20 10:13 | PCM.SSS ---
History of Present Illness - Chief Complaint Chief Complaint: c/o shortness of breath for 1-2 days History of Present Illness: is a 81 yr old female reports that she was in hosp 1 month ago for CHF- no hx of procedures, but developed CP today momentary x 2 and no CP now; now no symptoms but came to be evaluated. Timing/Duration: today Activities at Onset: none Quality: sharpness, stabbing Location: shoulder Chest Pain Radiation: arm Severity of Pain-Max: moderate Severity of Pain-Current: moderate Modifying Factors: Improves With: nothing Associated Symptoms: denies symptoms Prior Chest Pain/Cardiac Workup: no prior chest pain, recently seen/treated, recent hospitalization Nitro Today/Relief: no nitro taken today Aspirin Treatment Today: 81 mg x 4, provided by ED - Review of Systems Constitutional: No Fever, No Chills Eyes: No Symptoms Ears, Nose, & Throat: No Symptoms Respiratory: No Cough, No Short Of Breath Cardiac: No Chest Pain, No Edema, No Syncope Abdominal/Gastrointestinal: No Abdominal Pain, No Nausea, No Vomiting, No Diarrhea Genitourinary Symptoms: No Dysuria Musculoskeletal: No Back Pain, No Neck Pain Skin: No Rash Neurological: No Dizziness, No Focal Weakness, No Sensory Changes Psychological: No Symptoms Endocrine: No Symptoms Hematologic/Lymphatic: No Symptoms Immunological/Allergic: No Symptoms Medications & Allergies Home Medications: Home Medication List Bisoprolol Fumarate/Hctz [Ziac 10-6.25 mg Tablet] 1 each PO DAILY 07/07/13 [ History Confirmed 12/20/16] Bumetanide 1 mg PO DAILY 07/07/13 [History Confirmed 12/20/16] Ergocalciferol (Vitamin D2) [Vitamin D2] 1 tab PO WEEKLY 07/07/13 [History Confirmed 12/20/16] Levothyroxine Sodium [Synthroid] 25 mcg PO DAILY 07/07/13 [History Confirmed 08/07] Isosorbide Mononitrate 30 mg [Imdur 30 MG] 30 mg PO DAILY 01/31/14 [ History Confirmed 12/20/16] Magnesium Oxide 400 mg [Mag-Ox 400] 400 mg PO HS 02/09/16 [History Confirmed 12/20/16] Potassium Chloride 20 Meq [Klor-Con 20 MEQ] 20 meq PO DAILY 02/09/16 [History Confirmed 12/20/16] Apixaban [Eliquis] 5 mg PO DAILY 11/21/16 [History Confirmed 12/20/16] Multivitamin [Multivitamins] 1 each PO HS 11/21/16 [History Confirmed 12/20/16] Pravastatin Sodium 20 mg PO HS 11/21/16 [History Confirmed 12/20/16] Allergies/Adverse Reactions: Allergies Allergy/AdvReac Type Severity Reaction Status Date / Time cephalexin monohydrate Allergy Verified 12/19/16 20:14 [From Keflex] clindamycin Allergy Verified 12/19/16 20:14 diclofenac [Diclofenac] Allergy Verified 12/19/16 20:14 latex Allergy Verified 12/19/16 20:14 - Past Medical History Past Medical History: Yes Neurological History: No Pertinent History ENT History: No Pertinent History Cardiac History: Angina, Arrhythmia, High Cholesterol, Hypertension Respiratory History: Bronchitis, Pneumonia Endocrine Medical History: Hypothyroidism Musculoskelatal History: Arthritis GI Medical History: No Pertinent History History: Other Pyscho-Social History: No Pertinent History Reproductive Disorders: No Pertinent History Comment: URINARY INCONTINENCE - Female History Are you now?: No - Past Surgical History Past Surgical History: Yes Neuro Surgical History: No Pertinent History Cardiac History: No Pertinent History Respiratory Surgery: No Pertinent History GI Surgical History: Other Genitourinary Surgical Hx: No Pertinent History Musculskeletal Surgical Hx: Orthopedic Surgery Female Surgical History: No Pertinent History Other Surgical History: HUMEROUS REPAIR, ROTATOR CUFF REPAIR. BLADDER TIE-UP. COLONOSCOPY FEB 14 - Social History Smoking Status: Never smoker Exposure to second hand smoke: No Alcohol: None Drug Use: none - Physical Exam Vital Signs: Vital Signs - 24 hr Temp Pulse Pulse Resp BP Pulse Ox 12/20/16 07:11 98.1 F 78 18 135/60 97 12/20/16 07:03 94 L 12/20/16 06:00 97.9 F 72 18 151/70 92 L 12/20/16 05:59 93 L 12/20/16 04:00 97.9 F 68 19 129/66 92 L 12/20/16 02:00 98.2 F 77 19 146/70 92 L 12/20/16 00:00 98.3 F 84 19 163/78 93 L 12/19/16 22:54 97.9 F 91 H 18 153/76 93 L 12/19/16 22:52 86 16 91 L 12/19/16 22:00 97.9 F 91 H 18 153/76 93 L 12/19/16 21:23 93 L 12/19/16 20:03 86 12/19/16 20:00 97.9 F 91 H 14 152/68 93 L Oxygen-Last 24 hours O2 Percentage 2 Liters = 28% O2 Percentage 2 Liters = 28% O2 Percentage 2 Liters = 28% O2 Percentage 2 Liters = 28% O2 Percentage 2 Liters = 28% General Appearance: no apparent distress, alert Neurologic Exam: alert, oriented x 3, cooperative, normal mood/affect, nml cerebellar function, nml station & gait, sensation nml, No motor deficits Eye Exam: PERRL/EOMI, eyes nml inspection Ears, Nose, Throat Exam: normal ENT inspection, TMs normal, pharynx normal, moist mucous membranes Neck Exam: normal inspection, non-tender, supple, full range of motion Respiratory Exam: crackles/rales, No respiratory distress Cardiovascular Exam: regular rate/rhythm, normal heart sounds, normal peripheral pulses Gastrointestinal/Abdomen Exam: soft, normal bowel sounds, No tenderness, No mass Back Exam: normal inspection, normal range of motion, No CVA tenderness, No vertebral tenderness Extremity Exam: normal inspection, normal range of motion, pelvis stable Skin Exam: normal color, warm, dry, No rash Lymphatic Exam: No adenopathy Results - Labs Lab/Micro Results: Lab Results-Last 24 Hours 12/19/16 12/20/16 12/20/16 Range/Units 23:13 02:23 05:20 WBC (4.0-10.5) K/mm3 RBC (4.1-5.4) M/mm3 Hgb (12.0-16.0) gm/dl Hct (35-47) % MCV (78-100) fl MCH (26-32) pg MCHC (32-36) g/dl RDW (11.5-14.0) % Plt Count (150-450) K/mm3 MPV (6-9.5) fl Sodium (136-145) mEq/L Potassium (3.5-5.1) mEq/L Chloride (98-107) mEq/L Carbon Dioxide (21-32) mEq/L Anion Gap (5-15) MEQ/L BUN (9-20) mg/dL Creatinine (0.55-1.30) mg/dl Estimated GFR ML/MIN Glucose (70-110) MG/DL Calcium (8.5-10.1) mg/dL Troponin I 0.018 0.022 0.023 (0.000-0.056) ng/ml NT-Pro-B Natriuret Pep (0-450) pg/ml Triglycerides (30-200) mg/dL Cholesterol (100-200) mg/dL LDL Cholesterol (5-99) mg/dL HDL Cholesterol (35-60) mg/dL Heart Disease Risk Ratio 12/20/16 12/20/16 12/20/16 Range/Units 05:20 05:20 08:15 WBC 5.1 (4.0-10.5) K/mm3 RBC 3.86 L (4.1-5.4) M/mm3 Hgb 11.6 L (12.0-16.0) gm/dl Hct 35.2 (35-47) % MCV 91.2 (78-100) fl MCH 30.0 (26-32) pg MCHC 33.0 (32-36) g/dl RDW 14.0 (11.5-14.0) % Plt Count 159 (150-450) K/mm3 MPV 10.4 H (6-9.5) fl Sodium 142 (136-145) mEq/L Potassium 3.6 (3.5-5.1) mEq/L Chloride 104 (98-107) mEq/L Carbon Dioxide 28.9 (21-32) mEq/L Anion Gap 12.8 (5-15) MEQ/L BUN 14 (9-20) mg/dL Creatinine 0.89 (0.55-1.30) mg/dl Estimated GFR > 60 ML/MIN Glucose 103 (70-110) MG/DL Calcium 9.1 (8.5-10.1) mg/dL Troponin I 0.021 (0.000-0.056) ng/ml NT-Pro-B Natriuret Pep 1222 H (0-450) pg/ml Triglycerides 91 (30-200) mg/dL Cholesterol 136 (100-200) mg/dL LDL Cholesterol 81 (5-99) mg/dL HDL Cholesterol 39 (35-60) mg/dL Heart Disease Risk Ratio 3.5 - Other Procedures and Tests Respiratory Therapy 12/21/16 05:00 EKG DAILY 12/22/16 05:00 EKG DAILY 12/23/16 05:00 EKG DAILY Assessment/Plan (1) CHF (congestive heart failure) Current Visit: Yes Status: Resolved Qualifiers: Congestive heart failure type: combined Congestive heart failure chronicity : acute on chronic Qualified Code(s): I50.43 - Acute on chronic combined systolic (congestive) and diastolic (congestive) heart failure Code(s): I50.9 - HEART FAILURE, UNSPECIFIED (2) Exertional dyspnea Current Visit: Yes Status: Acute Code(s): R06.09 - OTHER FORMS OF DYSPNEA Hospital Summary - Vitals & Intake/Output Vital Signs: Vital Signs Temperature 98.1 F 12/20/16 07:11 Pulse Rate 78 12/20/16 07:11 Respiratory Rate 18 12/20/16 07:11 Blood Pressure 135/60 12/20/16 07:11 O2 Sat by Pulse Oximetry 97 12/20/16 07:11 Oxygen-Last Documented O2 Percentage 2 Liters = 28% Intake & Output: Intake & Output 12/17/16 12/18/16 12/19/16 12/20/16 11:59 11:59 11:59 11:59 Intake Total 770 Output Total 900 Balance -130 Weight 77.111 kg - Lab Result Diagrams: 12/20/16 05:20 12/20/16 05:20 Lab Results-Last 24 Hrs: Lab Results-Last 24 Hours 12/19/16 12/20/16 12/20/16 Range/Units 23:13 02:23 05:20 WBC (4.0-10.5) K/mm3 RBC (4.1-5.4) M/mm3 Hgb (12.0-16.0) gm/dl Hct (35-47) % MCV (78-100) fl MCH (26-32) pg MCHC (32-36) g/dl RDW (11.5-14.0) % Plt Count (150-450) K/mm3 MPV (6-9.5) fl Sodium (136-145) mEq/L Potassium (3.5-5.1) mEq/L Chloride (98-107) mEq/L Carbon Dioxide (21-32) mEq/L Anion Gap (5-15) MEQ/L BUN (9-20) mg/dL Creatinine (0.55-1.30) mg/dl Estimated GFR ML/MIN Glucose (70-110) MG/DL Calcium (8.5-10.1) mg/dL Troponin I 0.018 0.022 0.023 (0.000-0.056) ng/ml NT-Pro-B Natriuret Pep (0-450) pg/ml Triglycerides (30-200) mg/dL Cholesterol (100-200) mg/dL LDL Cholesterol (5-99) mg/dL HDL Cholesterol (35-60) mg/dL Heart Disease Risk Ratio 12/20/16 12/20/16 12/20/16 Range/Units 05:20 05:20 08:15 WBC 5.1 (4.0-10.5) K/mm3 RBC 3.86 L (4.1-5.4) M/mm3 Hgb 11.6 L (12.0-16.0) gm/dl Hct 35.2 (35-47) % MCV 91.2 (78-100) fl MCH 30.0 (26-32) pg MCHC 33.0 (32-36) g/dl RDW 14.0 (11.5-14.0) % Plt Count 159 (150-450) K/mm3 MPV 10.4 H (6-9.5) fl Sodium 142 (136-145) mEq/L Potassium 3.6 (3.5-5.1) mEq/L Chloride 104 (98-107) mEq/L Carbon Dioxide 28.9 (21-32) mEq/L Anion Gap 12.8 (5-15) MEQ/L BUN 14 (9-20) mg/dL Creatinine 0.89 (0.55-1.30) mg/dl Estimated GFR > 60 ML/MIN Glucose 103 (70-110) MG/DL Calcium 9.1 (8.5-10.1) mg/dL Troponin I 0.021 (0.000-0.056) ng/ml NT-Pro-B Natriuret Pep 1222 H (0-450) pg/ml Triglycerides 91 (30-200) mg/dL Cholesterol 136 (100-200) mg/dL LDL Cholesterol 81 (5-99) mg/dL HDL Cholesterol 39 (35-60) mg/dL Heart Disease Risk Ratio 3.5 - Procedures and Test Procedures and Tests throughout Hospitalization: Therapy Orders & Screens 12/20/16 03:57 EKG ROUTINE Comment: Diagnosis: CHF 12/21/16 05:00 EKG DAILY Comment: Diagnosis: CHF 12/22/16 05:00 EKG DAILY Comment: Diagnosis: CHF 12/23/16 05:00 EKG DAILY Comment: Diagnosis: CHF - Discharge Disposition: Home, Self-Care Condition: Good Prescriptions: No Action Bumetanide 1 mg PO DAILY Levothyroxine Sodium [Synthroid] 25 mcg PO DAILY Bisoprolol Fumarate/Hctz [Ziac 10-6.25 mg Tablet] 1 each PO DAILY Ergocalciferol (Vitamin D2) [Vitamin D2] 1 tab PO WEEKLY Isosorbide Mononitrate 30 mg [Imdur 30 MG] 30 mg PO DAILY Magnesium Oxide 400 mg [Mag-Ox 400] 400 mg PO HS Potassium Chloride 20 Meq [Klor-Con 20 MEQ] 20 meq PO DAILY Pravastatin Sodium 20 mg PO HS Apixaban [Eliquis] 5 mg PO DAILY Multivitamin [Multivitamins] 1 each PO HS Follow up with: RAUL GAYTAN MD [Primary Care Provider] -
[2016-12-20] MEDS ORDERED: MEDICATION INTERVENTION MC PRN (10:26)
[2016-12-20] MEDS ORDERED: THERAGRAN MULTIVITAMIN PO SCH (10:30)
[2016-12-20] MEDS ORDERED: ELIQUIS PO SCH (10:30)
[2016-12-20] MEDS ORDERED: BUMEX 1 MG PO SCH (10:30)
[2016-12-20] MEDS ORDERED: SYNTHROID 25 MCG PO SCH (10:30)
[2016-12-20] MEDS ORDERED: Klor Con 10 MEQ PO SCH (10:30)
[2016-12-20] MEDS ORDERED: Imdur 30 MG PO SCH (10:30)
[2016-12-20 16:12] VITALS: BP 139/65; PULSE 82; O2SAT 92
[2016-12-20] MEDS ORDERED: NON-FORMULARY ITEM (Pravastatin Sodium [Pravastatin Sodium] 20 MG) PO SCH (22:00)
[2016-12-20] MEDS ORDERED: NON-FORMULARY ITEM (Multivitamin [Multivitamins] 1 EACH) PO SCH (22:00)
[2016-12-20] MEDS ORDERED: MAG-OX 400 PO SCH (22:00)
[2016-12-20] MEDS ORDERED: ZOCOR 20MG PO SCH (22:00)
[2016-12-21] MEDS ORDERED: BUMETANIDE 1 MG PO SCH (10:00)
[2016-12-21] MEDS ORDERED: BISOPROLOL FUMARATE PO SCH (10:00)
[2016-12-21] MEDS ORDERED: NON-FORMULARY ITEM (Potassium Chloride 20 Meq [Klor-Con 20 Meq] 20 MEQ) PO SCH (10:00)
[2016-12-21] MEDS ORDERED: HCTZ PO SCH (10:00)
== END 2016-12-20 16:50 | disposition home or self-care (01) ==
LOC: ED 19:51 → MED SURG 21:55
PROVIDERS: ADMIT Internal Medicine; ATTEND Internal Medicine
DX: I50.43 Acute on chronic combined systolic (congestive) and diastolic (congestive) heart failure (principal); R06.09 Other forms of dyspnea; E03.9 Hypothyroidism, unspecified; I10 Essential (primary) hypertension; R07.9 Chest pain, unspecified; M19.90 Unspecified osteoarthritis, unspecified site; R32 Unspecified urinary incontinence; Z79.01 Long term (current) use of anticoagulants; Z79.899 Other long term (current) drug therapy
CPT/HCPCS: 36000; 36415; 71010; 80048; 80053; 80061; 81002; 83605; 83721; 83880; 84484; 85025; 85027; 93005; 93268; 94760; 96360; 99285; G0378; A9270-GY

== ENCOUNTER 2017-07-28 13:32 | Observation (INO) | payer MEDICARE ==
[2017-07-28] MEDS ORDERED: Sodium Chloride 0.9% 1000 ML 1,000 ML IV SCH (14:00)
[2017-07-28 14:13] LABS: BASOPHIL % 0.7 % (0.0-0.4); Basophil (Absolute #) 0.04 (0-0.4); Eosinophil % 3.6 % (0.00-5.0); Eosinophil (Absolute #) 0.22 (0-0.5); Granulocyte Absolute (ANC) 3.61 (1.4-6.9); Granulocytes % 59.2 % (36.0-66.0); Hematocrit 35.5 % (35-47); Hemoglobin 11.4 gm/dl (12.0-16.0); Lymphocyte (Absolute #) 1.52 (1.0-4.6); Lymphocytes % 24.9 % (24.0-44.0); Mean Cell Volume 90.8 fl (78-100); Mean Corpuscular Hgb Concent. 32.1 g/dl (32-36); Mean Platelet Volume 10.2 fl (6-9.5); Monocyte (Absolute #) 0.71 (0.0-1.3); Monocytes % 11.6 % (0.0-12.0); Platelet Count 215 K/mm3 (150-450); Red Blood Count 3.91 M/mm3 (4.1-5.4); Red Cell Distribution Width 13.8 % (11.5-14.0); White Blood Count 6.1 K/mm3 (4.0-10.5)
[2017-07-28 14:16] LABS: Mean Corpuscular Hemoglobin 29.1 pg (26-32)
--- NOTE | 2017-07-28 14:27 | XRAY ---
Indication: Cough Comparison: December 19, 2016. Portable chest less inflated today with new subtle left mid to lower lung and right base infiltrate/atelectasis. No consolidation or large effusion. Heart is borderline enlarged. Bony thorax again demonstrates osteopenia, degenerative changes, and old right humeral head deformity. Impression: New left mid to lower lung and right base infiltrate/atelectasis. Correlate clinically.
--- NOTE | 2017-07-28 14:30 | XRAY ---
Indication: Lethargy and unsteady gait. Multiple contiguous axial images obtained through the head without contrast. Comparison: February 22, 2015. Again age-appropriate global atrophy and moderate periventricular degenerative micro-ischemia bilaterally. No acute intracranial hemorrhage, abnormal extra-axial fluid collection, or mass effect. Fourth ventricle is midline without hydrocephalus. Bony calvarium intact. Visualized right maxillary sinus now completely opacified. Remaining paranasal sinuses and mastoid air cells are clear. Impression: New right maxillary sinus disease. Otherwise nonacute senile brain. CTDI 66.81
[2017-07-28] MEDS ORDERED: Levofloxacin 500MG/100ML D5W 500 MG/100 ML BAG IV STA (14:33)
[2017-07-28] MEDS ORDERED: DUONEB 0.5-3 MG/3 ml Neb IH ONE ×2 (14:34→15:07)
[2017-07-28 14:44] LABS: ALBUMIN 3.3 g/dL (3.4-5.0); BILIRUBIN,TOTAL 0.9 mg/dL (0.2-1.0); Calcium 9.4 mg/dL (8.5-10.1); Carbon Dioxide 24.7 mEq/L (21-32); Creatinine 1 0.99 mg/dl (0.55-1.30); Potassium 3.7 mEq/L (3.5-5.1); Total Protein 8.1 gm/dL (6.4-8.2)
[2017-07-28 15:45] LABS: Appearance CLEAR (CLEAR)
[2017-07-28 15:46] LABS: Bilirubin NEGATIVE (NEGATIVE); Blood NEGATIVE Ery/ul (0-5); Glucose NEGATIVE (NEGATIVE); Ketones NEGATIVE (NEGATIVE); Leukocyte Esterase NEGATIVE (NEGATIVE); Nitrite NEGATIVE (NEGATIVE); Protein,Urine Dip NEGATIVE (Negative); Urobilinogen NORMAL mg/dL (0-1)
[2017-07-28] MEDS ORDERED: Levofloxacin 500MG/100ML D5W 500 MG/100 ML BAG IV ONE (16:06)
--- NOTE | 2017-07-28 16:59 | ERPHSYRPT ---
- History of Present Illness Time Seen by Provider: 07/28/17 14:00 Source: patient Exam Limitations: clinical condition Patient Subjective Stated Complaint: PT REPORTS WAKING THIS AM TO VOMITING-HAS CONTINUED TO VOMIT-BEGAN GETTING DIZZY WITH MOVEMENT-DENIES LOC-DENIES FEVER Triage Nursing Assessment: PT PALE WARM ET [id number] QUESTIONS CORRECTLY-ABD SOFT ET NONTENDER TO PALP Physician History: PATIENT WITH A HISTORY ATRIAL FIBRILLATION, HYPOTHYROIDISM COMPLAINS OF NAUSEA WITH EMESIS X 2, DIZZINESS WORSE UPON MOTION OF HEAD, HAS OCCASIONAL COUGH AND DYSPNEA. DENIES CHEST PAIN PALPITATIONS. Timing/Duration: today Severity: moderate Modifying Factors: Improves With: movement Associated Symptoms: nausea, vomiting, other (COUGH.) Allergies/Adverse Reactions: cephalexin monohydrate [From Keflex] Allergy (Verified 07/28/17 13:47) clindamycin Allergy (Verified 07/28/17 13:47) diclofenac [Diclofenac] Allergy (Verified 07/28/17 13:47) latex Allergy (Verified 07/28/17 13:47) Home Medications: Bisoprolol/Hydrochlorothiazide [Ziac 10-6.25 mg Tablet] 1 each PO DAILY [History] Bumetanide 1 mg PO DAILY 07/07/13 [History] Ergocalciferol (Vitamin D2) [Vitamin D2] 1 tab PO WEEKLY 07/07/13 [History] Levothyroxine Sodium [Synthroid] 25 mcg PO DAILY 07/07/13 [History] Isosorbide Mononitrate 30 mg [Imdur 30 MG] 30 mg PO DAILY 01/31/14 [History ] Magnesium Oxide 400 mg [Mag-Ox 400] 400 mg PO HS 02/09/16 [History] Potassium Chloride 20 Meq [Klor-Con 20 MEQ] 20 meq PO DAILY 02/09/16 [History] Apixaban [Eliquis] 5 mg PO DAILY 11/21/16 [History] Multivitamin [Multivitamins] 1 each PO HS 11/21/16 [History] Pravastatin Sodium 20 mg PO HS 11/21/16 [History] Hx Tetanus, Diphtheria Vaccination/Date Given: No Hx Influenza Vaccination/Date Given: Yes Hx Pneumococcal Vaccination/Date Given: Yes Immunizations Up to Date: Yes - Review of Systems Constitutional: No Fever, No Chills Eyes: No Symptoms Ears, Nose, & Throat: No Symptoms Respiratory: Cough, No Dyspnea Cardiac: No Chest Pain, No Edema, No Syncope Abdominal/Gastrointestinal: Nausea, No Abdominal Pain, No Vomiting, No Diarrhea Genitourinary Symptoms: No Dysuria Musculoskeletal: No Back Pain, No Neck Pain Skin: No Rash Neurological: Dizziness, No Focal Weakness, No Sensory Changes Psychological: No Symptoms Endocrine: No Symptoms All Other Systems: Reviewed and Negative - Past Medical History Pertinent Past Medical History: Yes Neurological History: No Pertinent History ENT History: No Pertinent History Cardiac History: Angina, Arrhythmia, High Cholesterol, Hypertension Respiratory History: Bronchitis, Pneumonia Endocrine Medical History: Hypothyroidism Musculoskeletal History: Arthritis GI Medical History: No Pertinent History History: Other Psycho-Social History: No Pertinent History Female Reproductive Disorders: No Pertinent History Other Medical History: URINARY INCONTINENCE - Past Surgical History Past Surgical History: Yes Neuro Surgical History: No Pertinent History Cardiac: No Pertinent History Respiratory: No Pertinent History Gastrointestinal: Other Genitourinary: No Pertinent History Musculoskeletal: Orthopedic Surgery Female Surgical History: No Pertinent History Other Surgical History: HUMEROUS REPAIR, ROTATOR CUFF REPAIR. BLADDER TIE-UP. COLONOSCOPY MAR 04 - Social History Smoking Status: Never smoker Exposure to second hand smoke: No Drug Use: none Patient Lives Alone: No - Female History Hx Now: No - Nursing Vital Signs Nursing Vital Signs: Initial Vital Signs Temperature 98.1 F 07/28/17 13:44 Pulse Rate 90 07/28/17 13:44 Respiratory Rate 20 07/28/17 13:44 Blood Pressure 157/9 07/28/17 13:44 O2 Sat by Pulse Oximetry 94 L 07/28/17 13:44 Pain Scale Pain Intensity 0 - Physical Exam General Appearance: no apparent distress, alert Eye Exam: PERRL/EOMI, eyes nml inspection Ears, Nose, Throat Exam: normal ENT inspection, TMs normal, pharynx normal, moist mucous membranes Neck Exam: normal inspection, non-tender, supple, full range of motion Respiratory Exam: normal breath sounds, lungs clear, diminished breath sounds ( AT BASES), No respiratory distress Cardiovascular Exam: regular rate/rhythm, normal heart sounds, normal peripheral pulses Gastrointestinal/Abdomen Exam: soft, normal bowel sounds, No tenderness, No mass Back Exam: normal inspection, normal range of motion, No CVA tenderness, No vertebral tenderness Extremity Exam: normal inspection, normal range of motion, pelvis stable Neurologic Exam: alert, oriented x 3, cooperative, normal mood/affect, nml cerebellar function, nml station & gait, sensation nml, No motor deficits Skin Exam: normal color, warm, dry, No rash Lymphatic Exam: No adenopathy SpO2 Interpretation: normal SpO2: 97 Oxygen Delivery: Nasal Cannula - Course EKG Interpreted by Me: RATE, A-fib, Non-specific ST Changes - Radiology Exams Chest X-ray Interpretation: Discussed w/ radiologist (NEW LEFT MID TO LOWER LUNG AND RIGHT BASE INFILTRATE/ATELECTASIS) - CT Exams Head CT Interpretation: Discussed w/radiologist (NEW RIGHT MAXILLARY SINUS DISEASE) Ordered Tests: Active Orders 24 hr Category Date Time Status EKG-ER Only STAT Care 07/28/17 13:56 Active IV Insertion STAT Care 07/28/17 13:56 Active Oxygen-ED Only NASAL CANNULA 2 lpm Care 07/28/17 13:56 Active CHEST 1 VIEW (PORTABLE) Stat Exams 07/28/17 13:57 Completed HEAD WITHOUT CONTRAST [CT] Stat Exams 07/28/17 13:57 Completed BLOOD CULTURE Stat Lab 07/28/17 13:45 Received CBC W DIFF Stat Lab 07/28/17 14:00 Completed CMP Stat Lab 07/28/17 14:00 Completed TROPONIN Q3H Lab 07/28/17 14:00 Completed TROPONIN Q3H Lab 07/28/17 17:00 Ordered TROPONIN Q3H Lab 07/28/17 20:00 Ordered TROPONIN Q3H Lab 07/28/17 23:00 Ordered TROPONIN Q3H Lab 07/29/17 02:00 Ordered UA Stat Lab 07/28/17 15:35 Completed UA W/RFX UR CULTURE Stat Lab 07/28/17 13:57 Ordered Respiratory Nebulizer STAT RT 07/28/17 14:34 Completed Medication Summary Generic Name Dose Route Start Last Admin Trade Name Freq PRN Reason Stop Dose Admin Sodium Chloride 1,000 mls @ 100 mls/hr 07/28/17 14:00 07/28/17 14:19 Sodium Chloride 0.9% 1000 Ml IV 08/27/17 13:59 100 mls/hr .Q10H [place] Administration Discontinued Medications Generic Name Dose Route Start Last Admin Trade Name Freq PRN Reason Stop Dose Admin Albuterol/Ipratropium 3 ml 07/28/17 14:34 07/28/17 15:10 Duoneb 0.5-3 Mg/3 Ml Neb IH 07/28/17 14:35 3 ml STAT ONE Administration Albuterol/Ipratropium Confirm 07/28/17 15:07 Duoneb 0.5-3 Mg/3 Ml Neb Administered 07/28/17 15:08 Dose 3 ml IH .STK-MED ONE Levofloxacin/Dextrose 500 mg in 100 mls @ 100 mls/hr 07/28/17 14:33 07/28/17 16:08 Levofloxacin 500mg/100ml D5w IV 07/28/17 15:32 100 mls/hr STAT STA Administration Levofloxacin/Dextrose Confirm 07/28/17 16:06 Levofloxacin 500mg/100ml D5w Administered 07/28/17 16:07 Dose 500 mg in 100 mls @ ud IV .STK-MED ONE Lab/Rad Data: Laboratory Result Diagrams 07/28/17 14:00 07/28/17 14:00 Laboratory Results 07/28/17 07/28/17 07/28/17 Range/Units 15:35 14:00 14:00 WBC (4.0-10.5) K/mm3 RBC (4.1-5.4) M/mm3 Hgb (12.0-16.0) gm/dl Hct (35-47) % MCV (78-100) fl MCH (26-32) pg MCHC (32-36) g/dl RDW (11.5-14.0) % Plt Count (150-450) K/mm3 MPV (6-9.5) fl Gran % (36.0-66.0) % Lymphocytes % (24.0-44.0) % Monocytes % (0.0-12.0) % Eosinophils % (0.00-5.0) % Basophils % (0.0-0.4) % Basophils # (0-0.4) Sodium 139 (136-145) mEq/L Potassium 3.7 (3.5-5.1) mEq/L Chloride 102 (98-107) mEq/L Carbon Dioxide 24.7 (21-32) mEq/L Anion Gap 16.0 H (5-15) MEQ/L BUN 15 (9-20) mg/dL Creatinine 0.99 (0.55-1.30) mg/dl Estimated GFR 57 ML/MIN Glucose 154 H (70-110) MG/DL Calcium 9.4 (8.5-10.1) mg/dL Total Bilirubin 0.90 (0.2-1.0) mg/dL AST 29 (15-37) U/L ALT 13 (12-78) U/L Alkaline Phosphatase 67 (46-116) U/L Troponin I < 0.017 (0.000-0.056) ng/ml Serum Total Protein 8.1 (6.4-8.2) gm/dL Albumin 3.3 L (3.4-5.0) g/dL Ur Collection Type CCMS Urine Color YELLOW (YELLOW) Urine Appearance CLEAR (CLEAR) Urine pH 5.0 (5-6) Ur Specific [place] 1.010 (1.005-1.025) Urine Protein NEGATIVE (Negative) Urine Ketones NEGATIVE (NEGATIVE) Urine Blood NEGATIVE (0-5) [place]/ul Urine Nitrite NEGATIVE (NEGATIVE) Urine Bilirubin NEGATIVE (NEGATIVE) Urine Urobilinogen NORMAL (0-1) mg/dL Ur Leukocyte Esterase NEGATIVE (NEGATIVE) Urine Glucose NEGATIVE (NEGATIVE) mg/dL Specimen Received 07-28-17 1545 07/28/17 Range/Units 14:00 WBC 6.1 (4.0-10.5) K/mm3 RBC 3.91 L (4.1-5.4) M/mm3 Hgb 11.4 L (12.0-16.0) gm/dl Hct 35.5 (35-47) % MCV 90.8 (78-100) fl MCH 29.1 (26-32) pg MCHC 32.1 (32-36) g/dl RDW 13.8 (11.5-14.0) % Plt Count 215 (150-450) K/mm3 MPV 10.2 H (6-9.5) fl Gran % 59.2 (36.0-66.0) % Lymphocytes % 24.9 (24.0-44.0) % Monocytes % 11.6 (0.0-12.0) % Eosinophils % 3.6 (0.00-5.0) % Basophils % 0.7 (0.0-0.4) % Basophils # 0.04 (0-0.4) Sodium (136-145) mEq/L Potassium (3.5-5.1) mEq/L Chloride (98-107) mEq/L Carbon Dioxide (21-32) mEq/L Anion Gap (5-15) MEQ/L BUN (9-20) mg/dL Creatinine (0.55-1.30) mg/dl Estimated GFR ML/MIN Glucose (70-110) MG/DL Calcium (8.5-10.1) mg/dL Total Bilirubin (0.2-1.0) mg/dL AST (15-37) U/L ALT (12-78) U/L Alkaline Phosphatase (46-116) U/L Troponin I (0.000-0.056) ng/ml Serum Total Protein (6.4-8.2) gm/dL Albumin (3.4-5.0) g/dL Ur Collection Type Urine Color (YELLOW) Urine Appearance (CLEAR) Urine pH (5-6) Ur Specific [place] (1.005-1.025) Urine Protein (Negative) Urine Ketones (NEGATIVE) Urine Blood (0-5) [place]/ul Urine Nitrite (NEGATIVE) Urine Bilirubin (NEGATIVE) Urine Urobilinogen (0-1) mg/dL Ur Leukocyte Esterase (NEGATIVE) Urine Glucose (NEGATIVE) mg/dL Specimen Received - Progress Progress Note: 07/28/17 17:08 ADMINISTERED IV NORMAL SALINE 100ML/HR, LEVAQUIN 500MG IVPB Discussed with : Perlita (DISCUSSED WITH DR GAYTAN AT 1630 FOR ADMISSION) - Departure Time of Disposition: 17:10 Departure Disposition: Observation Clinical Impression: PNEUMONIA, ACUTE VERTIGO Condition: Stable Critical Care Time: No Referrals: RAUL GAYTAN MD [Primary Care Provider] -
[2017-07-28] MEDS ORDERED: DUONEB 0.5-3 MG/3 ml Neb IH SCH (19:00)
[2017-07-28] MEDS ORDERED: DUONEB 0.5-3 MG/3 ml Neb IH PRN (22:28)
[2017-07-29] MEDS ORDERED: Sodium Chloride 0.9% 1000 ML 1,000 ML ONE (01:26)
[2017-07-29] MEDS: Sodium Chloride 0.9% 1000 ML 1,000 ML IV SCH ×2 (01:27→14:12)
[2017-07-29] MEDS ORDERED: MEDICATION INTERVENTION MC PRN (07:26)
[2017-07-29] MEDS ORDERED: ERGOCALCIFEROL PO SCH (07:30)
[2017-07-29] MEDS ORDERED: HYDROCHLOROTHIAZIDE PO SCH (10:00)
[2017-07-29] MEDS ORDERED: BISOPROLOL PO SCH (10:00)
[2017-07-29] MEDS: ELIQUIS PO SCH (10:08)
[2017-07-29] MEDS: Klor Con 10 MEQ PO SCH (10:08)
[2017-07-29] MEDS: SYNTHROID 25 MCG PO SCH (10:08)
[2017-07-29] MEDS: Imdur 30 MG PO SCH (10:09)
[2017-07-29] MEDS: Levofloxacin 500MG/100ML D5W 500 MG/100 ML BAG IV SCH (10:09)
[2017-07-29] MEDS: BUMEX 1 MG PO SCH (10:09)
--- NOTE | 2017-07-29 11:56 | PCM.HP ---
History of Present Illness - Chief Complaint Chief Complaint: shortness of breath History of Present Illness: is a 82 year old female. - Review of Systems Constitutional: No Fever, No Chills Eyes: No Symptoms Ears, Nose, & Throat: No Symptoms Respiratory: No Cough, No Short Of Breath Cardiac: No Chest Pain, No Edema, No Syncope Abdominal/Gastrointestinal: No Abdominal Pain, No Nausea, No Vomiting, No Diarrhea Genitourinary Symptoms: No Dysuria Musculoskeletal: No Back Pain, No Neck Pain Skin: No Rash Neurological: No Dizziness, No Focal Weakness, No Sensory Changes Psychological: No Symptoms Endocrine: No Symptoms Hematologic/Lymphatic: No Symptoms Immunological/Allergic: No Symptoms Medications & Allergies Home Medications: Home Medication List Bisoprolol/Hydrochlorothiazide [Ziac 10-6.25 mg Tablet] 1 each PO DAILY [History Confirmed 07/28/17] Bumetanide 1 mg PO DAILY 07/07/13 [History Confirmed 07/28/17] Ergocalciferol (Vitamin D2) [Vitamin D2] 1 tab PO WEEKLY 07/07/13 [History Confirmed 07/28/17] Levothyroxine Sodium [Synthroid] 25 mcg PO DAILY 07/07/13 [History Confirmed 01/05] Isosorbide Mononitrate 30 mg [Imdur 30 MG] 30 mg PO DAILY 01/31/14 [ History Confirmed 07/28/17] Magnesium Oxide 400 mg [Mag-Ox 400] 400 mg PO HS 02/09/16 [History Confirmed 07/28/17] Potassium Chloride 20 Meq [Klor-Con 20 MEQ] 20 meq PO DAILY 02/09/16 [History Confirmed 07/28/17] Apixaban [Eliquis] 5 mg PO DAILY 11/21/16 [History Confirmed 07/28/17] Multivitamin [Multivitamins] 1 each PO HS 11/21/16 [History Confirmed 07/28/17] Pravastatin Sodium 20 mg PO HS 11/21/16 [History Confirmed 07/28/17] Allergies/Adverse Reactions: Allergies Allergy/AdvReac Type Severity Reaction Status Date / Time cephalexin monohydrate Allergy Verified 07/28/17 13:47 [From Keflex] clindamycin Allergy Verified 07/28/17 13:47 diclofenac [Diclofenac] Allergy Verified 07/28/17 13:47 latex Allergy Verified 07/28/17 13:47 - Past Medical History Past Medical History: Yes Neurological History: No Pertinent History ENT History: No Pertinent History Cardiac History: Angina, Arrhythmia, High Cholesterol, Hypertension Respiratory History: Bronchitis, Pneumonia Endocrine Medical History: Hypothyroidism Musculoskelatal History: Arthritis GI Medical History: No Pertinent History History: Other Pyscho-Social History: No Pertinent History Reproductive Disorders: No Pertinent History Comment: URINARY INCONTINENCE - Female History Are you now?: No - Past Surgical History Past Surgical History: Yes Neuro Surgical History: No Pertinent History Cardiac History: No Pertinent History Respiratory Surgery: No Pertinent History GI Surgical History: Other Genitourinary Surgical Hx: No Pertinent History Musculskeletal Surgical Hx: Orthopedic Surgery Female Surgical History: No Pertinent History Other Surgical History: HUMEROUS REPAIR, ROTATOR CUFF REPAIR. BLADDER TIE-UP. COLONOSCOPY MAR 04 - Social History Smoking Status: Never smoker Exposure to second hand smoke: No Alcohol: None Drug Use: none - Physical Exam Vital Signs: Vital Signs - 24 hr Temp Pulse Resp BP Pulse Ox 07/29/17 08:53 83 16 90 L 07/29/17 07:43 97.8 F 80 18 142/70 98 07/29/17 04:00 97.7 F 78 17 164/77 97 07/29/17 03:00 92 L 07/29/17 00:00 97.5 F 82 17 146/72 92 L 07/28/17 23:00 96 07/28/17 19:00 83 16 96 07/28/17 18:10 98.1 F 87 16 134/85 94 L 07/28/17 17:38 87 16 134/85 94 L 07/28/17 17:09 97 07/28/17 14:34 83 22 97 07/28/17 13:44 98.1 F 90 20 157/9 94 L Oxygen-Last 24 hours O2 Percentage 2 Liters = 28% O2 Percentage 2 Liters = 28% O2 Percentage 2 Liters = 28% O2 Percentage 2 Liters = 28% General Appearance: no apparent distress, alert Neurologic Exam: alert, oriented x 3, cooperative, normal mood/affect, nml cerebellar function, nml station & gait, sensation nml, No motor deficits Eye Exam: PERRL/EOMI, eyes nml inspection Ears, Nose, Throat Exam: normal ENT inspection, TMs normal, pharynx normal, moist mucous membranes Neck Exam: normal inspection, non-tender, supple, full range of motion Respiratory Exam: normal breath sounds, lungs clear, No respiratory distress Cardiovascular Exam: regular rate/rhythm, normal heart sounds, normal peripheral pulses Gastrointestinal/Abdomen Exam: soft, normal bowel sounds, No tenderness, No mass Back Exam: normal inspection, normal range of motion, No CVA tenderness, No vertebral tenderness Extremity Exam: normal inspection, normal range of motion, pelvis stable Skin Exam: normal color, warm, dry, No rash Lymphatic Exam: No adenopathy Results - Labs Lab/Micro Results: Lab Results-Last 24 Hours 07/28/17 07/28/17 07/29/17 Range/Units 20:05 23:15 02:00 Troponin I < 0.017 < 0.017 < 0.017 (0.000-0.056) ng/ml - Other Procedures and Tests Respiratory Therapy 07/28/17 22:29 Respiratory Nebulizer UD Assessment/Plan (1) Atrial fibrillation Current Visit: Yes Status: Acute Qualifiers: Atrial fibrillation type: chronic Qualified Code(s): I48.2 - Chronic atrial fibrillation Code(s): I48.91 - UNSPECIFIED ATRIAL FIBRILLATION (2) Pneumonia Current Visit: Yes Status: Acute Qualifiers: Pneumonia type: due to unspecified organism Lung location: unspecified part of lung Code(s): J18.9 - PNEUMONIA, UNSPECIFIED ORGANISM (3) CHF (congestive heart failure) Current Visit: Yes Status: Chronic Qualifiers: Congestive heart failure type: combined Congestive heart failure chronicity : chronic Qualified Code(s): I50.42 - Chronic combined systolic (congestive) and diastolic (congestive) heart failure Code(s): I50.9 - HEART FAILURE, UNSPECIFIED
[2017-07-29] MEDS: PATIENT OWN MEDICATION PO SCH (14:39)
[2017-07-29] MEDS ORDERED: ZOCOR 20MG PO SCH (22:00)
[2017-07-29] MEDS ORDERED: NON-FORMULARY ITEM (Pravastatin Sodium [Pravastatin Sodium] 20 MG) PO SCH (22:00)
[2017-07-29] MEDS ORDERED: NON-FORMULARY ITEM (Multivitamin [Multivitamins] 1 EACH) PO SCH (22:00)
[2017-07-29] MEDS ORDERED: MAG-OX 400 PO SCH (22:00)
[2017-07-29] MEDS ORDERED: THERAGRAN MULTIVITAMIN PO SCH (22:00)
[2017-07-30] MEDS: Levofloxacin 500MG/100ML D5W 500 MG/100 ML BAG IV SCH (10:03)
[2017-07-30] MEDS: PATIENT OWN MEDICATION PO SCH (10:03)
[2017-07-30] MEDS: SYNTHROID 25 MCG PO SCH (10:03)
[2017-07-30] MEDS: Imdur 30 MG PO SCH (10:03)
[2017-07-30] MEDS: Klor Con 10 MEQ PO SCH (10:03)
[2017-07-30] MEDS: BUMEX 1 MG PO SCH (10:03)
[2017-07-30] MEDS: ELIQUIS PO SCH (10:04)
[2017-07-30 11:18] VITALS: BP 149/68; PULSE 81; O2SAT 91
[2017-08-01] MEDS ORDERED: VITAMIN D PO SCH (10:00)
== END 2017-07-29 13:45 | disposition home or self-care (01) ==
LOC: ED 13:32 → MED SURG 18:00
PROVIDERS: ADMIT General Practice; ATTEND General Practice
DX: I48.2 Chronic atrial fibrillation (principal); J18.9 Pneumonia, unspecified organism; I50.42 Chronic combined systolic (congestive) and diastolic (congestive) heart failure; I10 Essential (primary) hypertension; E03.9 Hypothyroidism, unspecified; M19.90 Unspecified osteoarthritis, unspecified site
CPT/HCPCS: 36000; 36415; 70450; 71045; 80053; 81002; 84484; 85025; 87040; 93005; 94150; 94640; 94760; 99285; G0378; J1956; A9270-GY

== ENCOUNTER 2017-12-03 11:43 | Observation (INO) | payer MEDICARE ==
[2017-12-03] MEDS: Sodium Chloride 0.9% 1000 ML 1,000 ML IV SCH (13:20)
[2017-12-03 13:39] LABS: Hematocrit 32.8 % (35-47); Hemoglobin 10.8 gm/dl (12.0-16.0); Mean Cell Volume 91.6 fl (78-100); Mean Corpuscular Hgb Concent. 32.9 g/dl (32-36); Mean Platelet Volume 10.1 fl (6-9.5); Platelet Count 146 K/mm3 (150-450); Red Blood Count 3.58 M/mm3 (4.1-5.4); Red Cell Distribution Width 14.6 % (11.5-14.0); White Blood Count 6.1 K/mm3 (4.0-10.5)
[2017-12-03 13:40] LABS: Mean Corpuscular Hemoglobin 30.1 pg (26-32)
[2017-12-03] MEDS ORDERED: NORCO 5/325 MG PO PRN (13:51)
[2017-12-03 13:56] LABS: ALBUMIN 3.7 g/dL (3.5-5.0); ALKALINE PHOSPHATASE 74 U/L (38-126); ANION GAP 15.5 MEQ/L (5-15); BLOOD UREA NITROGEN 16 mg/dL (7-17); CHLORIDE 105 mmol/L (98-107); Calcium 9.2 mg/dL (8.4-10.2); Carbon Dioxide 25 mmol/L (22-30); Creatinine 1 0.79 mg/dL (0.52-1.04); Glucose 115 mg/dL (74-106); Potassium 3.9 mmol/L (3.5-5.1); SGOT/AST 25 U/L (14-36); SGPT/ALT 12 U/L (0-35); SODIUM 142 mmol/L (137-145); Total Protein 7.3 g/dL (6.3-8.2)
[2017-12-03] MEDS ORDERED: ERGOCALCIFEROL PO SCH (14:00)
--- NOTE | 2017-12-03 14:03 | XRAY ---
Indication: Dehydration. Chronic atrial fibrillation. Comparison: July 28, 2017. PA/lateral chest hyperinflated and clear today. Heart remains borderline enlarged. Vascularity normal. Bony thorax intact again with mild osteopenia, degenerative changes, mild dextroscoliosis, and old right humeral head fracture. Impression: Nonacute hyperinflated chest with chronic features.
[2017-12-03 14:04] LABS: NT PRO BNP 1990 pg/mL (0-1800)
[2017-12-03] MEDS: Levaquin 250MG/50ML D5W 250 MG/50 ML BAG IV SCH (14:39)
[2017-12-03] MEDS ORDERED: MEDICATION INTERVENTION MC SCH (14:45)
[2017-12-03 15:14] LABS: Appearance CLEAR (CLEAR); Specific Gravity 1.005 (1.005-1.025)
[2017-12-03 15:15] LABS: Bilirubin NEGATIVE (NEGATIVE); Blood NEGATIVE Ery/ul (0-5); Glucose NEGATIVE (NEGATIVE); Ketones NEGATIVE (NEGATIVE); Leukocyte Esterase NEGATIVE (NEGATIVE); Nitrite NEGATIVE (NEGATIVE); Protein,Urine Dip NEGATIVE (Negative); Urobilinogen NORMAL mg/dL (0-1)
[2017-12-03] MEDS ORDERED: ELIQUIS 5 MG TABLET PO SCH (22:00)
[2017-12-03] MEDS ORDERED: MAG-OX 400 PO SCH (22:00)
[2017-12-03] MEDS ORDERED: NON-FORMULARY ITEM (Pravastatin Sodium [Pravastatin Sodium] 20 MG) PO SCH (22:00)
[2017-12-03] MEDS ORDERED: ZOCOR 20MG PO SCH (22:00)
[2017-12-03] MEDS: ELIQUIS 2.5 MG TABLET PO SCH (22:20)
[2017-12-04] MEDS: Sodium Chloride 0.9% 1000 ML 1,000 ML IV SCH (03:17)
[2017-12-04] MEDS: Levaquin 250MG/50ML D5W 250 MG/50 ML BAG IV SCH (09:15)
[2017-12-04] MEDS: ELIQUIS 2.5 MG TABLET PO SCH (09:15)
[2017-12-04] MEDS ORDERED: BISOPROLOL PO SCH (10:00)
[2017-12-04] MEDS ORDERED: PATIENT OWN MEDICATION PO SCH (10:00)
[2017-12-04] MEDS ORDERED: Imdur 30 MG PO SCH (10:00)
[2017-12-04] MEDS ORDERED: BUMEX 1 MG PO SCH (10:00)
[2017-12-04] MEDS ORDERED: HYDROCHLOROTHIAZIDE PO SCH (10:00)
[2017-12-04] MEDS ORDERED: SYNTHROID 25 MCG PO SCH (10:00)
[2017-12-04] MEDS ORDERED: Klor Con 10 MEQ PO SCH (10:00)
[2017-12-04] MEDS ORDERED: NON-FORMULARY ITEM (Potassium Chloride 20 Meq [Klor-Con 20 Meq] 20 MEQ) PO SCH (10:00)
[2017-12-04] MEDS ORDERED: xanAX 0.25 MG PO PRN (14:54)
[2017-12-04 16:38] VITALS: BP 143/73; PULSE 86; O2SAT 95
--- NOTE | 2017-12-04 20:37 | XRAY ---
Indication: Dizziness and blurred vision. Multiple contiguous axial images obtained through the head without contrast. Comparison: July 28, 2017. Again age-appropriate global atrophy and moderate periventricular degenerative micro-ischemia bilaterally. No acute intracranial hemorrhage, abnormal extra-axial fluid collection, or mass effect. Fourth ventricle is midline without hydrocephalus. Bony calvarium intact. Visualized paranasal sinuses and mastoid air cells are clear. Impression: Stable nonacute senile brain. Comment: Preliminary interpretation was made by [facility]. No discrepancy. CTDI 68.15
[2017-12-05] MEDS ORDERED: VITAMIN D2 PO SCH (10:00)
--- NOTE | 2017-12-09 11:05 | DS ---
DISCHARGE DIAGNOSIS: 1. HISTORY OF SUBOPTIMALLY CONTROLLED HYPERTENSION (NOW IMPROVED). 2. BLURRED VISION - NOW RESOLVED. 3. ANXIETY. 4. HISTORY OF VOMITING - RESOLVED. 5. HYPOTHYROIDISM. 6. CHRONIC ATRIAL FIBRILLATION. 7. HISTORY OF FEVER WITH CHILLS - RESOLVED. HOSPITAL COURSE: Ms. Kingston is an 82 y/o woman with past medical history of hypertension, coronary artery disease, hypothyroidism, hyperlipidemia, atrial fibrillation, and arthritis. She was seen by Dr. Bhat in office yesterday and had reported elevated BP reading. Had vomited twice. Also, had reported fever with chills and blurry vision. (Reportedly, patient's family did have stress in family during last week per nursing staff.) Patient was admitted from office with diagnosis of possible urinary tract infection. Initial course was notable for elevated BP readings. She was restarted on her home medications. Lab work-up on admission had shown unremarkable CBC except Hgb of 10.8. CMP was unremarkable except glucose of 115, BUN 16, creatinine 0.79. UA was essentially negative. Chest x-ray from 12/03/17 showed nonacute hyperinflated chest with chronic features. During her further course, she improved clinically. Her BP had improved. She remained hemodynamically stable. Also, her symptoms of vomiting, fever, and chills had resolved and she remained afebrile and hemodynamically stable. At the time of this evaluation, she is alert, awake, and comfortable. Denied chest pain or increased shortness of breath. Denies headache or dizziness. Complains of feeling stress (due to recent events in family). States that blurred vision has improved. Appears comfortable. She is tolerating diet. She is requesting to be discharged home. VITALS: BP 121/68, heart rate 82, respiratory rate 17, temperature 97.9, O2 saturation 94% on room air. HEENT: Pallor present. No icterus noted. NECK: No JVD present. CVS: S1 and S2 present. RESPIRATORY: Breath sounds bilaterally diminished and clear to auscultation. ABDOMEN: Obese, soft, nontender. NEURO: She is alert and awake. Answers simple questions appropriately. Follows simple commands appropriately. Follows simple commands appropriately. Evaluation of motor strength in bilateral upper and lower extremities reveals 4+-5/5 motor strength. EXTREMITIES: Reveals no edema on bilateral lower extremities. LABORATORY DATA: There were no new labs today. Medications were reviewed. ASSESSMENT: As outlined in Discharge Diagnosis. PLAN: 82 y/o woman with history of hypertension, coronary artery disease, atrial fibrillation, and hyperlipidemia was admitted with uncontrolled BP readings, blurred vision, and history of vomiting X 2. Also, possible urinary tract infection. She underwent work-up and treatment as noted. Her BP has improved. She has overall improved clinically. She otherwise remains hemodynamically stable. In view of patient's recent stressful events, will start patient on low-dose PRN Xanax. This was discussed with patient and she is agreeable with that. Also, in view of her uncontrolled hypertension, symptoms of blurred vision, and history of further risks, comorbidities, and factors, will obtain baseline CT head and troponin. Patient has otherwise improved clinically. Remains hemodynamically stable. She is wishing to go home. Will ambulate patient. If work-up is negative, will likely discharge home later today. Please refer to discharge medication list from 12/04/17 for details of medications on discharge. I have advised patient to follow-up with Dr. Bhat in office in 1 week. Compliance with diet and medications was stressed. She was advised to start discharge medications as directed. Side effects were discussed with patient and advised to call if any appear. She was advised not to take Xanax prior to driving or operating machinery. She was advised to continue to monitor BP readings closely, watch for signs and symptoms of bleeding, and report to Emergency Room immediately if any are to appear. I have advised her to report to the Emergency Room if any new signs and symptoms or reappearance of previous signs and symptoms are noted. The patient's clinical condition, work-up results, plan of management, and plan after discharge as outlined was discussed with patient. She seems to be in understanding and agreement. Please refer to patient's chart, labs, diagnostic work-up results, and consultants notes for details.
== END 2017-12-04 17:30 | disposition home or self-care (01) ==
LOC: MED SURG 12:14
PROVIDERS: ADMIT General Practice; ATTEND General Practice
DX: E86.0 Dehydration (principal)
CPT/HCPCS: 36415; 70450; 71046; 80053; 81002; 83880; 84484; 85027; 93268; J1956; A9270-GY; G0378

== ENCOUNTER 2018-09-16 18:12 | Observation (INO) | payer MEDICARE, OTHER ==
[2018-09-16] MEDS ORDERED: Zofran 4 MG/2 ML VIAL IV ONE (19:02)
[2018-09-16] MEDS ORDERED: MORPHINE SULFATE 2 MG INJ IV ONE (19:04)
[2018-09-16] MEDS ORDERED: MORPHINE SULFATE 2 MG INJ ONE (19:07)
[2018-09-16] MEDS ORDERED: Zofran 4 MG/2 ML VIAL ONE (19:07)
[2018-09-16 19:11] LABS: BASOPHIL % 0.3 % (0.0-0.4); Basophil (Absolute #) 0.02 (0-0.4); Eosinophil % 4.8 % (0.00-5.0); Eosinophil (Absolute #) 0.28 (0-0.5); Granulocyte Absolute (ANC) 3.11 (1.4-6.9); Granulocytes % 53.9 % (36.0-66.0); Hematocrit 35.4 % (35-47); Hemoglobin 11.5 gm/dl (12.0-16.0); Lymphocyte (Absolute #) 1.74 (1.0-4.6); Lymphocytes % 30.1 % (24.0-44.0); Mean Corpuscular Hgb Concent. 32.5 g/dl (32-36); Mean Platelet Volume 9.9 fl (6-9.5); Monocyte (Absolute #) 0.63 (0.0-1.3); Monocytes % 10.9 % (0.0-12.0); Platelet Count 212 K/mm3 (150-450); Red Blood Count 3.89 M/mm3 (4.1-5.4); Red Cell Distribution Width 13.9 % (11.5-14.0); White Blood Count 5.8 K/mm3 (4.0-10.5)
[2018-09-16 19:12] LABS: INR 1.48 (0.8-3.0); PROTIME 17.3 SECONDS (9.95-12.35)
[2018-09-16 19:14] LABS: Mean Corpuscular Hemoglobin 29.5 pg (26-32)
--- NOTE | 2018-09-16 19:14 | ERPHSYRPT ---
- History of Present Illness Time Seen by Provider: 09/16/18 18:30 Historian: patient Exam Limitations: clinical condition Patient Subjective Stated Complaint: states began having right lower abd and flank pain yesterday. denies any difficulty with urination. denies n/v/d at this time. Triage Nursing Assessment: to room per w/c. skin w/d, color pale, resp easy. abd soft, tender right lower quad. Physician History: PATIENT WITH A HISTORY OF HYPERTENSION, CORONARY ARTERY DISEASE, AND ATRIAL FIBRILLATION COMPLAINS OF RIGHT FLANK PAIN SINCE YESTERDAY ASSOCIATED WITH RIGHT SIDED ABDOMINAL PAIN. DENIES FEVER,AND INURINARY SYMPTOMS, FREQUENCY, URGENCY, DYSURIA OR HEMATURIA. Timing/Duration: yesterday Activities at Onset: none Quality: throbbing Abdominal Pain Onset Location: RUQ, flank Pain Radiation: RUQ Severity of Pain-Max: moderate Severity of Pain-Current: moderate Modifying Factors: Improves With: nothing Associated Symptoms: denies symptoms Previous symptoms: no prior history Allergies/Adverse Reactions: cephalexin monohydrate [From Keflex] Allergy (Verified 12/03/17 13:06) clindamycin Allergy (Verified 12/03/17 13:06) diclofenac [Diclofenac] Allergy (Verified 12/03/17 13:06) latex Allergy (Verified 12/03/17 13:06) Home Medications: Bisoprolol/Hydrochlorothiazide [Ziac 10-6.25 mg Tablet] 1 each PO DAILY [History] Ergocalciferol (Vitamin D2) [Vitamin D2] 1 tab PO WEEKLY 07/07/13 [History] Levothyroxine Sodium [Synthroid] 25 mcg PO DAILY 07/07/13 [History] Isosorbide Mononitrate 30 mg [Imdur 30 MG] 30 mg PO DAILY 01/31/14 [History ] Magnesium Oxide 400 mg [Mag-Ox 400] 400 mg PO HS 02/09/16 [History] Potassium Chloride 20 Meq [Klor-Con 20 MEQ] 20 meq PO DAILY 02/09/16 [History] Apixaban [Eliquis 5 mg Tablet] 5 mg PO BID 11/21/16 [History] Pravastatin Sodium 20 mg PO HS 11/21/16 [History] Bumetanide 1 mg [Bumex 1 mg] 1 mg PO DAILY 12/03/17 [History] Hydrocodone Bit/Acetaminophen [Turney 5-325 Tablet] 1 each PO Q6HPRN PRN [History] Hx Tetanus, Diphtheria Vaccination/Date Given: No Hx Influenza Vaccination/Date Given: Yes Hx Pneumococcal Vaccination/Date Given: Yes - Review of Systems Constitutional: No Fever, No Chills Eyes: No Symptoms Ears, Nose, & Throat: No Symptoms Respiratory: No Cough, No Dyspnea Cardiac: No Chest Pain, No Edema, No Syncope Abdominal/Gastrointestinal: No Abdominal Pain, No Nausea, No Vomiting, No Diarrhea Genitourinary Symptoms: Flank Pain, No Dysuria Musculoskeletal: No Symptoms, No Back Pain, No Neck Pain Skin: No Rash Neurological: No Dizziness, No Focal Weakness, No Sensory Changes Psychological: No Symptoms Endocrine: No Symptoms All Other Systems: Reviewed and Negative - Past Medical History Pertinent Past Medical History: Yes Neurological History: No Pertinent History ENT History: No Pertinent History Cardiac History: Angina, Arrhythmia, High Cholesterol, Hypertension Respiratory History: Bronchitis, Pneumonia Endocrine Medical History: Hypothyroidism Musculoskeletal History: Arthritis GI Medical History: No Pertinent History History: Other Psycho-Social History: No Pertinent History Female Reproductive Disorders: No Pertinent History Other Medical History: URINARY INCONTINENCE - Past Surgical History Past Surgical History: Yes Neuro Surgical History: No Pertinent History Cardiac: No Pertinent History Respiratory: No Pertinent History Gastrointestinal: Other Genitourinary: No Pertinent History Musculoskeletal: Orthopedic Surgery Female Surgical History: No Pertinent History Other Surgical History: HUMEROUS REPAIR, ROTATOR CUFF REPAIR. BLADDER TIE-UP. COLONOSCOPY MAR 04 - Social History Smoking Status: Never smoker Exposure to second hand smoke: No Drug Use: none Patient Lives Alone: No - Female History Hx Now: No - Nursing Vital Signs Nursing Vital Signs: Initial Vital Signs Pulse Rate 72 09/16/18 18:13 Respiratory Rate 16 09/16/18 18:13 Blood Pressure 144/69 09/16/18 18:13 O2 Sat by Pulse Oximetry 93 L 09/16/18 18:13 Pain Scale Pain Intensity 0 - Physical Exam General Appearance: no apparent distress, alert Eye Exam: PERRL/EOMI, eyes nml inspection Ears, Nose, Throat Exam: normal ENT inspection, pharynx normal, moist mucous membranes Neck Exam: normal inspection, non-tender, supple, full range of motion Respiratory Exam: normal breath sounds, lungs clear, No respiratory distress Cardiovascular Exam: regular rate/rhythm, normal heart sounds Gastrointestinal/Abdomen Exam: soft, normal bowel sounds, tenderness ( TENDERNESS LATERAL TO RUQ ), No mass Back Exam: normal inspection, normal range of motion, CVA tenderness (MODERATE RIGHT CVA TENDERNESS), No vertebral tenderness Extremity Exam: normal inspection, normal range of motion, pelvis stable Neurologic Exam: alert, oriented x 3, cooperative, normal mood/affect, nml cerebellar function, sensation nml, No motor deficits Skin Exam: normal color, warm, dry SpO2 Interpretation: normal SpO2: 96 - CT Exams Abdomen/Pelvis CT Interpretation: Tele-radiologist Report (NORMAL APPENDIX, MILD NONSPECIFIC RIGHT PERINEPHRIC STRANDING, THERE IS A 2CM RIGHT RENAL CYST, NO EVIDENCE OF DIVERTICULITIS) Ordered Tests: Active Orders 24 hr Category Date Time Status Clean Catch Urine Specimen STAT Care 09/16/18 19:02 Active IV Insertion STAT Care 09/16/18 19:02 Active ABDOMEN AND PELVIS W/0 CONTRAS [CT] Stat Exams 09/16/18 19:04 Taken AMYLASE Stat Lab 09/16/18 19:14 Completed BLOOD CULTURE Stat Lab 09/16/18 19:22 Received CBC W DIFF Stat Lab 09/16/18 19:02 Completed CMP Stat Lab 09/16/18 19:14 Completed LIPASE Stat Lab 09/16/18 19:14 Completed PT INR [PROTIME WITH INR] Stat Lab 09/16/18 19:06 Completed UA W/RFX UR CULTURE Stat Lab 09/16/18 19:34 Completed Medication Summary Generic Name Dose Route Start Last Admin Trade Name Freq PRN Reason Stop Dose Admin Sodium Chloride 1,000 mls @ 50 mls/hr 09/16/18 19:15 09/16/18 19:09 Sodium Chloride 0.9% 1000 Ml IV 10/16/18 19:14 50 mls/hr .Q20H AUGUSTIN Administration Ceftriaxone Sodium/Dextrose 1 g in 50 mls @ 100 mls/hr 09/16/18 21:11 Rocephin 1 Gm-D5w 50 Ml Bag IV 09/16/18 21:40 STAT STA Discontinued Medications Generic Name Dose Route Start Last Admin Trade Name Freq PRN Reason Stop Dose Admin Morphine Sulfate 1 mg 09/16/18 19:04 09/16/18 19:09 Morphine Sulfate 2 Mg Inj IV 09/16/18 19:05 1 mg STAT ONE Administration Morphine Sulfate Confirm 09/16/18 19:07 Morphine Sulfate 2 Mg Inj Administered 09/16/18 19:08 Dose 2 mg .ROUTE .STK-MED ONE Ondansetron HCl 4 mg 09/16/18 19:02 09/16/18 19:09 Zofran 4 Mg/2 Ml Vial IV 09/16/18 19:03 4 mg STAT ONE Administration Ondansetron HCl Confirm 09/16/18 19:07 Zofran 4 Mg/2 Ml Vial Administered 09/16/18 19:08 Dose 4 mg .ROUTE .STK-MED ONE Lab/Rad Data: Laboratory Result Diagrams 09/16/18 19:02 09/16/18 19:14 Laboratory Results 09/16/18 09/16/18 09/16/18 Range/Units 19:34 19:14 19:14 WBC (4.0-10.5) K/mm3 RBC (4.1-5.4) M/mm3 Hgb (12.0-16.0) gm/dl Hct (35-47) % MCV (78-100) fl MCH (26-32) pg MCHC (32-36) g/dl RDW (11.5-14.0) % Plt Count (150-450) K/mm3 MPV (6-9.5) fl Gran % (36.0-66.0) % Eos # (Auto) (0-0.5) Absolute Lymphs (auto) (1.0-4.6) Absolute Monos (auto) (0.0-1.3) Lymphocytes % (24.0-44.0) % Monocytes % (0.0-12.0) % Eosinophils % (0.00-5.0) % Basophils % (0.0-0.4) % Absolute Granulocytes (1.4-6.9) Basophils # (0-0.4) PT (9.95-12.35) SECONDS INR (0.8-3.0) Sodium 139 (137-145) mmol/L Potassium 3.4 L (3.5-5.1) mmol/L Chloride 101 (98-107) mmol/L Carbon Dioxide 27 (22-30) mmol/L Anion Gap 13.6 (5-15) MEQ/L BUN 18 H (7-17) mg/dL Creatinine 0.97 (0.52-1.04) mg/dL Estimated GFR 58.2 ML/MIN Glucose 123 H (74-106) mg/dL Calcium 9.6 (8.4-10.2) mg/dL Total Bilirubin 0.50 (0.2-1.3) mg/dL AST 38 H (14-36) U/L ALT 16 (0-35) U/L Alkaline Phosphatase 89 (38-126) U/L Serum Total Protein 7.7 (6.3-8.2) g/dL Albumin 3.9 (3.5-5.0) g/dL Amylase 143 H (30-110) U/L Lipase 332 H (23-300) U/L Urine Color YELLOW (YELLOW) Urine Appearance SLIGHTLY CLOUDY (CLEAR) Urine pH 7.0 (5-6) Ur Specific Hanson 1.005 (1.005-1.025) Urine Protein NEGATIVE (Negative) Urine Ketones NEGATIVE (NEGATIVE) Urine Blood NEGATIVE (0-5) Alverto/ul Urine Nitrite NEGATIVE (NEGATIVE) Urine Bilirubin NEGATIVE (NEGATIVE) Urine Urobilinogen NEGATIVE (0-1) mg/dL Ur Leukocyte Esterase NEGATIVE (NEGATIVE) Urine WBC (Auto) NONE (0-5) /HPF Urine RBC (Auto) NONE (0-2) /HPF U Epithel Cells (Auto) NONE (FEW) /HPF Urine Bacteria (Auto) NONE (NEGATIVE) /HPF Urine Mucus (Auto) SLIGHT (NEGATIVE) /HPF Urine Culture Reflexed NO (NO) Urine Glucose NEGATIVE (NEGATIVE) mg/dL 09/16/18 09/16/18 Range/Units 19:06 19:02 WBC 5.8 (4.0-10.5) K/mm3 RBC 3.89 L (4.1-5.4) M/mm3 Hgb 11.5 L (12.0-16.0) gm/dl Hct 35.4 (35-47) % MCV 91.0 (78-100) fl MCH 29.5 (26-32) pg MCHC 32.5 (32-36) g/dl RDW 13.9 (11.5-14.0) % Plt Count 212 (150-450) K/mm3 MPV 9.9 H (6-9.5) fl Gran % 53.9 (36.0-66.0) % Eos # (Auto) 0.28 (0-0.5) Absolute Lymphs (auto) 1.74 (1.0-4.6) Absolute Monos (auto) 0.63 (0.0-1.3) Lymphocytes % 30.1 (24.0-44.0) % Monocytes % 10.9 (0.0-12.0) % Eosinophils % 4.8 (0.00-5.0) % Basophils % 0.3 (0.0-0.4) % Absolute Granulocytes 3.11 (1.4-6.9) Basophils # 0.02 (0-0.4) PT 17.3 H (9.95-12.35) SECONDS INR 1.48 (0.8-3.0) Sodium (137-145) mmol/L Potassium (3.5-5.1) mmol/L Chloride (98-107) mmol/L Carbon Dioxide (22-30) mmol/L Anion Gap (5-15) MEQ/L BUN (7-17) mg/dL Creatinine (0.52-1.04) mg/dL Estimated GFR ML/MIN Glucose (74-106) mg/dL Calcium (8.4-10.2) mg/dL Total Bilirubin (0.2-1.3) mg/dL AST (14-36) U/L ALT (0-35) U/L Alkaline Phosphatase (38-126) U/L Serum Total Protein (6.3-8.2) g/dL Albumin (3.5-5.0) g/dL Amylase (30-110) U/L Lipase (23-300) U/L Urine Color (YELLOW) Urine Appearance (CLEAR) Urine pH (5-6) Ur Specific Hanson (1.005-1.025) Urine Protein (Negative) Urine Ketones (NEGATIVE) Urine Blood (0-5) Alverto/ul Urine Nitrite (NEGATIVE) Urine Bilirubin (NEGATIVE) Urine Urobilinogen (0-1) mg/dL Ur Leukocyte Esterase (NEGATIVE) Urine WBC (Auto) (0-5) /HPF Urine RBC (Auto) (0-2) /HPF U Epithel Cells (Auto) (FEW) /HPF Urine Bacteria (Auto) (NEGATIVE) /HPF Urine Mucus (Auto) (NEGATIVE) /HPF Urine Culture Reflexed (NO) Urine Glucose (NEGATIVE) mg/dL - Progress Progress Note: 09/16/18 19:16 JIV NORMAL SALINE 50ML/HR, ZOFRAN 4MG, MORPHINE 1MG IV, PAIN RESOLVED 09/16/18 21:15 Discussed with : Perlita Will see patient in: hospital (observation) (DISCUSSED WITH DR GAYTAN AT 2100 FOR OBSERVATION) - Departure Departure Disposition: Observation Clinical Impression: EARLY RIGHT PYELONEPHRITIS Condition: Stable Critical Care Time: No Referrals: RAUL GAYTAN MD [Primary Care Provider] -
[2018-09-16] MEDS ORDERED: Sodium Chloride 0.9% 1000 ML 1,000 ML IV SCH (19:15)
[2018-09-16 19:16] LABS: ALBUMIN 3.9 g/dL (3.5-5.0); ANION GAP 13.6 MEQ/L (5-15); BILIRUBIN,TOTAL 0.5 mg/dL (0.2-1.3); Calcium 9.6 mg/dL (8.4-10.2); Creatinine 1 0.97 mg/dL (0.52-1.04); Potassium 3.4 mmol/L (3.5-5.1); Total Protein 7.7 g/dL (6.3-8.2)
[2018-09-16 19:18] LABS: AMYLASE 143 U/L (30-110); LIPASE 332 U/L (23-300)
[2018-09-16 19:41] LABS: Appearance SLIGHTLY CLOUDY (CLEAR); Bilirubin NEGATIVE (NEGATIVE); Blood NEGATIVE Ery/ul (0-5); Glucose NEGATIVE (NEGATIVE); Ketones NEGATIVE (NEGATIVE); Leukocyte Esterase NEGATIVE (NEGATIVE); Mucus SLIGHT /HPF (NEGATIVE); Nitrite NEGATIVE (NEGATIVE); Protein,Urine Dip NEGATIVE (Negative); Specific Gravity 1.005 (1.005-1.025); Urobilinogen NEGATIVE mg/dL (0-1)
[2018-09-16] MEDS ORDERED: ROCEPHIN 1 Gm-D5w 50 ml Bag** 1 G/50 ML IVPB IV STA (21:11)
[2018-09-16] MEDS ORDERED: TYLENOL 325 MG PO PRN (21:21)
[2018-09-16] MEDS ORDERED: ROCEPHIN 1 Gm-D5w 50 ml Bag** 1 G/50 ML IVPB IV ONE (21:22)
[2018-09-16] MEDS ORDERED: NORCO 5/325 MG PO PRN (21:27)
--- NOTE | 2018-09-16 21:57 | XRAY ---
Indication: Right lower abdomen pain. Urinary incontinence. Multiple contiguous axial images obtained through the abdomen and pelvis without contrast as ordered. Comparison: None. Lung bases demonstrates minimal bibasilar fibrosis/scarring. No infiltrate or effusion. Heart is borderline enlarged. Small hiatal hernia. Noncontrasted stomach and bowel loops appear nonobstructed. Normal appendix. Mild diffuse scattered colonic fecal debris throughout. Mild sigmoid diverticulosis without diverticulitis. No free fluid/air. Liver margins appear micronodular favoring cirrhosis. 2.4 cm right lower pole renal cyst. Hepatic/splenic calcified granulomas. Tiny calcified uterine fibroids. Remaining liver, gallbladder, pancreas, spleen, adrenal glands, kidneys, ureters, and bladder appear unremarkable for noncontrast exam. Moderate scattered aortoiliac calcifications without AAA. Osseous structures demonstrates mild levorotoscoliosis, moderate multilevel degenerative spondylosis, and bilateral L5 spondylolysis with 1 cm spondylolisthesis. No ventral or inguinal hernias. Impression: 1. Mild fecal stasis without obstruction and sigmoid diverticulosis. 2. Suspect cirrhosis. No ascites. 3. Incidental right renal cyst, calcified uterine fibroids, small hiatal hernia, and evidence for old granulomatous disease. 4. Multilevel degenerative spondylosis, scoliosis, and bilateral L5 spondylolysis with grade 2 spondylolisthesis. Comment: Preliminary interpretation was made by [facility]. No critical discrepancy. CTDI 21.60
[2018-09-16] MEDS ORDERED: Levofloxacin 500MG/100ML D5W 500 MG/100 ML BAG IV STA (22:00)
[2018-09-16] MEDS: ELIQUIS 2.5 MG TABLET PO SCH (22:45)
[2018-09-17] MEDS: ELIQUIS 2.5 MG TABLET PO SCH (09:49)
[2018-09-17] MEDS ORDERED: BUMEX 1 MG PO SCH (10:00)
[2018-09-17] MEDS ORDERED: Toprol-Xl 25MG Tablets PO SCH (10:00)
[2018-09-17] MEDS ORDERED: Imdur 30 MG PO SCH (10:00)
[2018-09-17] MEDS ORDERED: NORCO 5/325 MG PO PRN (12:00)
--- NOTE | 2018-09-17 12:12 | PCM.SSS ---
History of Present Illness - Chief Complaint Chief Complaint: right side abdominal pain. for 2 days History of Present Illness: is a 83 year old female.states began having right lower abd and flank pain yesterday. denies any difficulty with urination. denies n/v/d at this time - Review of Systems Constitutional: No Fever, No Chills Eyes: No Symptoms Ears, Nose, & Throat: No Symptoms Respiratory: No Cough, No Short Of Breath Cardiac: No Chest Pain, No Edema, No Syncope Abdominal/Gastrointestinal: No Abdominal Pain, No Nausea, No Vomiting, No Diarrhea Genitourinary Symptoms: No Dysuria Musculoskeletal: No Back Pain, No Neck Pain Skin: No Rash Neurological: No Dizziness, No Focal Weakness, No Sensory Changes Psychological: No Symptoms Endocrine: No Symptoms Hematologic/Lymphatic: No Symptoms Immunological/Allergic: No Symptoms Medications & Allergies Home Medications: Home Medication List Bisoprolol/Hydrochlorothiazide [Ziac 10-6.25 mg Tablet] 1 each PO DAILY [History Confirmed 09/16/18] Levothyroxine Sodium [Synthroid] 25 mcg PO DAILY 07/07/13 [History Confirmed ] Isosorbide Mononitrate 30 mg [Imdur 30 MG] 30 mg PO DAILY 01/31/14 [ History Confirmed 09/16/18] Magnesium Oxide 400 mg [Mag-Ox 400] 400 mg PO HS 02/09/16 [History Confirmed 09/16/18] Potassium Chloride 20 Meq [Klor-Con 20 MEQ] 20 meq PO DAILY 02/09/16 [History Confirmed 09/16/18] Apixaban [Eliquis 5 mg Tablet] 5 mg PO DAILY 11/21/16 [History Confirmed 09/16/18] Pravastatin Sodium 20 mg PO HS 11/21/16 [History Confirmed 09/16/18] Bumetanide 1 mg [Bumex 1 mg] 1 mg PO DAILY 12/03/17 [History Confirmed ] Hydrocodone Bit/Acetaminophen [Paradox 5-325 Tablet] 1 each PO Q6HPRN PRN [History Confirmed 09/16/18] Ergocalciferol (Vitamin D2) [Vitamin D2] 50,000 unit PO WEEKLY 09/16/18 [ History Confirmed 09/16/18] Vits W-Ca,Fe,FA(<1Mg) [] 1 each PO HS 09/16/18 [History Confirmed 09/16/18] Levofloxacin [Levaquin] 250 mg PO DAILY #5 tablet 09/17/18 [Rx] Allergies/Adverse Reactions: Allergies Allergy/AdvReac Type Severity Reaction Status Date / Time cephalexin monohydrate Allergy Verified 12/03/17 13:06 [From Keflex] clindamycin Allergy Verified 12/03/17 13:06 diclofenac [Diclofenac] Allergy Verified 12/03/17 13:06 latex Allergy Verified 12/03/17 13:06 - Past Medical History Past Medical History: Yes Neurological History: No Pertinent History ENT History: No Pertinent History Cardiac History: Angina, Arrhythmia, High Cholesterol, Hypertension Respiratory History: Bronchitis, Pneumonia Endocrine Medical History: Hypothyroidism Musculoskelatal History: Arthritis GI Medical History: No Pertinent History History: Other Pyscho-Social History: No Pertinent History Reproductive Disorders: No Pertinent History Comment: URINARY INCONTINENCE - Female History Are you now?: No - Past Surgical History Past Surgical History: Yes Neuro Surgical History: No Pertinent History Cardiac History: No Pertinent History Respiratory Surgery: No Pertinent History GI Surgical History: Other Genitourinary Surgical Hx: No Pertinent History Musculskeletal Surgical Hx: Orthopedic Surgery Female Surgical History: No Pertinent History Other Surgical History: HUMEROUS REPAIR, ROTATOR CUFF REPAIR. BLADDER TIE-UP. COLONOSCOPY MAR 04 - Social History Smoking Status: Never smoker Exposure to second hand smoke: No Alcohol: None Drug Use: none - Physical Exam Vital Signs: Vital Signs - 24 hr Temp Pulse Resp BP BP Pulse Ox 09/17/18 07:13 97.7 F 82 20 140/78 97 09/17/18 04:00 97.8 F 76 19 137/63 88 L 09/17/18 00:00 98.3 F 78 18 163/72 92 L 09/16/18 23:12 98.3 F 78 18 163/72 92 L 09/16/18 22:13 70 20 128/63 95 09/16/18 21:16 96 09/16/18 21:04 73 16 121/50 95 09/16/18 20:09 82 18 135/75 96 09/16/18 18:19 97.8 F 77 16 144/69 96 09/16/18 18:13 72 16 93 L Oxygen-Last 24 hours O2 Percentage 2 Liters = 28% O2 Percentage 2 Liters = 28% O2 Percentage 2 Liters = 28% General Appearance: no apparent distress, alert Neurologic Exam: alert, oriented x 3, cooperative, normal mood/affect, nml cerebellar function, nml station & gait, sensation nml, No motor deficits Eye Exam: PERRL/EOMI, eyes nml inspection Ears, Nose, Throat Exam: normal ENT inspection, TMs normal, pharynx normal, moist mucous membranes Neck Exam: normal inspection, non-tender, supple, full range of motion Respiratory Exam: normal breath sounds, lungs clear, No respiratory distress Cardiovascular Exam: normal peripheral pulses, irregular Gastrointestinal/Abdomen Exam: soft, normal bowel sounds, tenderness (right upper quadrant), No mass Back Exam: normal inspection, normal range of motion, No CVA tenderness, No vertebral tenderness Extremity Exam: normal inspection, normal range of motion, pelvis stable Skin Exam: normal color, warm, dry, No rash Lymphatic Exam: No adenopathy Results - Labs Lab/Micro Results: Lab Results-Last 24 Hours 09/16/18 09/16/18 09/16/18 Range/Units 19:02 19:06 19:14 WBC 5.8 (4.0-10.5) K/mm3 RBC 3.89 L (4.1-5.4) M/mm3 Hgb 11.5 L (12.0-16.0) gm/dl Hct 35.4 (35-47) % MCV 91.0 (78-100) fl MCH 29.5 (26-32) pg MCHC 32.5 (32-36) g/dl RDW 13.9 (11.5-14.0) % Plt Count 212 (150-450) K/mm3 MPV 9.9 H (6-9.5) fl Gran % 53.9 (36.0-66.0) % Eos # (Auto) 0.28 (0-0.5) Absolute Lymphs (auto) 1.74 (1.0-4.6) Absolute Monos (auto) 0.63 (0.0-1.3) Lymphocytes % 30.1 (24.0-44.0) % Monocytes % 10.9 (0.0-12.0) % Eosinophils % 4.8 (0.00-5.0) % Basophils % 0.3 (0.0-0.4) % Absolute Granulocytes 3.11 (1.4-6.9) Basophils # 0.02 (0-0.4) PT 17.3 H (9.95-12.35) SECONDS INR 1.48 (0.8-3.0) Sodium (137-145) mmol/L Potassium (3.5-5.1) mmol/L Chloride (98-107) mmol/L Carbon Dioxide (22-30) mmol/L Anion Gap (5-15) MEQ/L BUN (7-17) mg/dL Creatinine (0.52-1.04) mg/dL Estimated GFR ML/MIN Glucose (74-106) mg/dL Calcium (8.4-10.2) mg/dL Total Bilirubin (0.2-1.3) mg/dL AST (14-36) U/L ALT (0-35) U/L Alkaline Phosphatase (38-126) U/L Serum Total Protein (6.3-8.2) g/dL Albumin (3.5-5.0) g/dL Amylase 143 H (30-110) U/L Lipase 332 H (23-300) U/L Urine Color (YELLOW) Urine Appearance (CLEAR) Urine pH (5-6) Ur Specific [place] (1.005-1.025) Urine Protein (Negative) Urine Ketones (NEGATIVE) Urine Blood (0-5) Alverto/ul Urine Nitrite (NEGATIVE) Urine Bilirubin (NEGATIVE) Urine Urobilinogen (0-1) mg/dL Ur Leukocyte Esterase (NEGATIVE) Urine WBC (Auto) (0-5) /HPF Urine RBC (Auto) (0-2) /HPF U Epithel Cells (Auto) (FEW) /HPF Urine Bacteria (Auto) (NEGATIVE) /HPF Urine Mucus (Auto) (NEGATIVE) /HPF Urine Culture Reflexed (NO) Urine Glucose (NEGATIVE) mg/dL 09/16/18 09/16/18 Range/Units 19:14 19:34 WBC (4.0-10.5) K/mm3 RBC (4.1-5.4) M/mm3 Hgb (12.0-16.0) gm/dl Hct (35-47) % MCV (78-100) fl MCH (26-32) pg MCHC (32-36) g/dl RDW (11.5-14.0) % Plt Count (150-450) K/mm3 MPV (6-9.5) fl Gran % (36.0-66.0) % Eos # (Auto) (0-0.5) Absolute Lymphs (auto) (1.0-4.6) Absolute Monos (auto) (0.0-1.3) Lymphocytes % (24.0-44.0) % Monocytes % (0.0-12.0) % Eosinophils % (0.00-5.0) % Basophils % (0.0-0.4) % Absolute Granulocytes (1.4-6.9) Basophils # (0-0.4) PT (9.95-12.35) SECONDS INR (0.8-3.0) Sodium 139 (137-145) mmol/L Potassium 3.4 L (3.5-5.1) mmol/L Chloride 101 (98-107) mmol/L Carbon Dioxide 27 (22-30) mmol/L Anion Gap 13.6 (5-15) MEQ/L BUN 18 H (7-17) mg/dL Creatinine 0.97 (0.52-1.04) mg/dL Estimated GFR 58.2 ML/MIN Glucose 123 H (74-106) mg/dL Calcium 9.6 (8.4-10.2) mg/dL Total Bilirubin 0.50 (0.2-1.3) mg/dL AST 38 H (14-36) U/L ALT 16 (0-35) U/L Alkaline Phosphatase 89 (38-126) U/L Serum Total Protein 7.7 (6.3-8.2) g/dL Albumin 3.9 (3.5-5.0) g/dL Amylase (30-110) U/L Lipase (23-300) U/L Urine Color YELLOW (YELLOW) Urine Appearance SLIGHTLY CLOUDY (CLEAR) Urine pH 7.0 (5-6) Ur Specific [place] 1.005 (1.005-1.025) Urine Protein NEGATIVE (Negative) Urine Ketones NEGATIVE (NEGATIVE) Urine Blood NEGATIVE (0-5) Alver[place]/ul Urine Nitrite NEGATIVE (NEGATIVE) Urine Bilirubin NEGATIVE (NEGATIVE) Urine Urobilinogen NEGATIVE (0-1) mg/dL Ur Leukocyte Esterase NEGATIVE (NEGATIVE) Urine WBC (Auto) NONE (0-5) /HPF Urine RBC (Auto) NONE (0-2) /HPF U Epithel Cells (Auto) NONE (FEW) /HPF Urine Bacteria (Auto) NONE (NEGATIVE) /HPF Urine Mucus (Auto) SLIGHT (NEGATIVE) /HPF Urine Culture Reflexed NO (NO) Urine Glucose NEGATIVE (NEGATIVE) mg/dL - Radiology Impressions Radiology Exams & Impressions: Radiology Procedures Category Date Time Status ABDOMEN AND PELVIS W/0 CONTRAS [CT] Stat Exams 09/16/18 19:04 Completed Assessment/Plan (1) Right upper quadrant abdominal pain Current Visit: Yes Status: Acute Assessment & Plan: Last Vital Signs Temp 97.7 F 09/17/18 07:13 Pulse 82 09/17/18 07:13 Resp 20 09/17/18 07:13 BP 140/78 09/17/18 07:13 Pulse Ox 97 09/17/18 07:13 Allergies cephalexin monohydrate [From Keflex] Allergy (Verified 12/03/17 13:06) clindamycin Allergy (Verified 12/03/17 13:06) diclofenac [Diclofenac] Allergy (Verified 12/03/17 13:06) latex Allergy (Verified 12/03/17 13:06) Active Medications Acetaminophen (Tylenol 325 Mg) 650 mg PO Q4H PRN PRN PRN Reason: PAIN AND/OR FEVER Stop: 10/16/18 21:20 Hydrocodone Bitart/Acetaminophen (Paradox 5/325 Mg) 1 tab PO Q6HPRN PRN PRN Reason: PAIN Stop: 09/22/18 11:59 Apixaban (Eliquis 2.5 Mg Tablet) 5 mg PO BID [place] Stop: 10/16/18 21:59 Last Admin: 09/17/18 09:49 Dose: 5 mg Bumetanide (Bumex 1 Mg) 1 mg PO DAILY [place] Stop: 10/17/18 09:59 Last Admin: 09/17/18 09:49 Dose: 1 mg Ergocalciferol (Vitamin D2) 50,000 unit PO ARCINIEGA [place] Stop: 10/18/18 09:59 Sodium Chloride (Sodium Chloride 0.9% 1000 Ml) 1,000 mls @ 50 mls/hr IV .Q20H [place] Stop: 10/16/18 19:14 Last Admin: 09/16/18 19:09 Dose: 50 mls/hr Levofloxacin/Dextrose (Levofloxacin 500mg/100ml D5w) 500 mg in 100 mls @ 100 mls/hr IV Q24H22 [place] Stop: 10/17/18 21:59 Isosorbide Mononitrate (Imdur 30 Mg) 30 mg PO DAILY [place] Stop: 10/17/18 09:59 Levothyroxine Sodium (Synthroid 25 Mcg) 25 mcg PO DAILY [place] Stop: 10/18/18 09:59 Magnesium Oxide (Mag-Ox 400) 400 mg PO HS [facility] Stop: 10/17/18 21:59 Metoprolol Succinate (Toprol-Xl 25mg Tablets) 12.5 mg PO DAILY [place] Stop: 10/17/18 09:59 Last Admin: 09/17/18 09:49 Dose: 12.5 mg Non-Formulary Medication (Bisoprolol/Hydrochlorothiazide [Ziac 10-6.25 Mg Tablet ]) 1 each PO DAILY [place] Stop: 10/18/18 09:59 Non-Formulary Medication (Pravastatin Sodium [Pravastatin Sodium]) 20 mg PO HS [facility] Stop: 10/17/18 21:59 Non-Formulary Medication ( Vits W-Ca,Fe,Fa(<1mg) []) 1 each PO HS [place] Stop: 10/17/18 21:59 Potassium Chloride (Klor Con 10 Meq) 20 meq PO DAILY [facility] Stop: 10/17/18 12:14 Intake & Output 09/17/18 09/18/18 11:59 11:59 Intake Total 713 Output Total 550 Balance 163 Weight 76.1 kg Orders 09/17/18 Discharge Routine 09/17/18 10:00 Isosorbide Mononitrate 30 mg [Imdur 30 MG] 30 mg PO DAILY 09/17/18 11:25 Miscellaneous Nursing Order ROUTINE 09/17/18 12:00 Hydrocodone/APAP 5/325 [Paradox 5/325 mg] 1 tab PO Q6HPRN PRN 09/17/18 12:15 Potassium Chloride 10 Meq Tab* [Klor Con 10 MEQ] 20 meq PO DAILY 09/17/18 22:00 Magnesium Oxide 400 mg [Mag-Ox 400] 400 mg PO HS Pravastatin Sodium [Pravastatin Sodium] 20 mg PO HS Vits W-Ca,Fe,FA(<1Mg) [] 1 each PO HS 09/18/18 10:00 Bisoprolol/Hydrochlorothiazide [Ziac 10-6.25 mg Tablet] 1 each PO DAILY Ergocalciferol (Vitamin D2) [Vitamin D2] 50,000 unit PO ARCINIEGA Levothyroxine Sodium 25 Mcg [Synthroid 25 Mcg] 25 mcg PO DAILY Lab Tests 09/16/18 09/16/18 09/16/18 19:02 19:06 19:14 WBC 5.8 RBC 3.89 L Hgb 11.5 L Hct 35.4 MCV 91.0 MCH 29.5 MCHC 32.5 RDW 13.9 Plt Count 212 MPV 9.9 H Gran % 53.9 Eos # (Auto) 0.28 Absolute Lymphs (auto) 1.74 Absolute Monos (auto) 0.63 Lymphocytes % 30.1 Monocytes % 10.9 Eosinophils % 4.8 Basophils % 0.3 Absolute Granulocytes 3.11 Basophils # 0.02 PT 17.3 H INR 1.48 Sodium Potassium Chloride Carbon Dioxide Anion Gap BUN Creatinine Estimated GFR Glucose Calcium Total Bilirubin AST ALT Alkaline Phosphatase Serum Total Protein Albumin Amylase 143 H Lipase 332 H Urine Color Urine Appearance Urine pH Ur Specific [place] Urine Protein Urine Ketones Urine Blood Urine Nitrite Urine Bilirubin Urine Urobilinogen Ur Leukocyte Esterase Urine WBC (Auto) Urine RBC (Auto) U Epithel Cells (Auto) Urine Bacteria (Auto) Urine Mucus (Auto) Urine Culture Reflexed Urine Glucose 09/16/18 09/16/18 19:14 19:34 WBC RBC Hgb Hct MCV MCH MCHC RDW Plt Count MPV Gran % Eos # (Auto) Absolute Lymphs (auto) Absolute Monos (auto) Lymphocytes % Monocytes % Eosinophils % Basophils % Absolute Granulocytes Basophils # PT INR Sodium 139 Potassium 3.4 L Chloride 101 Carbon Dioxide 27 Anion Gap 13.6 BUN 18 H Creatinine 0.97 Estimated GFR 58.2 Glucose 123 H Calcium 9.6 Total Bilirubin 0.50 AST 38 H ALT 16 Alkaline Phosphatase 89 Serum Total Protein 7.7 Albumin 3.9 Amylase Lipase Urine Color YELLOW Urine Appearance SLIGHTLY CLOUDY Urine pH 7.0 Ur Specific [place] 1.005 Urine Protein NEGATIVE Urine Ketones NEGATIVE Urine Blood NEGATIVE Urine Nitrite NEGATIVE Urine Bilirubin NEGATIVE Urine Urobilinogen NEGATIVE Ur Leukocyte Esterase NEGATIVE Urine WBC (Auto) NONE Urine RBC (Auto) NONE U Epithel Cells (Auto) NONE Urine Bacteria (Auto) NONE Urine Mucus (Auto) SLIGHT Urine Culture Reflexed NO Urine Glucose NEGATIVE Code(s): R10.11 - RIGHT UPPER QUADRANT PAIN (2) Pyelonephritis due to Escherichia coli Current Visit: Yes Status: Acute Code(s): N12 - TUBULO-INTERSTITIAL NEPHRITIS, NOT SPCF ACUTE OR CHRONIC; B96.20 - UNSP ESCHERICHIA COLI THE CAUSE OF DISEASES CLASSD [facility] Hospital Summary - Hospital Course Hospital Course: Chief Complaint Diagnosis Acute early right pyelonephritis, right renal colic Allergies Allergy/AdvReac Type Severity Reaction Status Date / Time cephalexin monohydrate Allergy Verified 12/03/17 13:06 [From Keflex] clindamycin Allergy Verified 12/03/17 13:06 diclofenac [Diclofenac] Allergy Verified 12/03/17 13:06 latex Allergy Verified 12/03/17 13:06 Vital Signs (Last 24 hours) Temp Pulse Resp BP BP Pulse Ox 09/17/18 07:13 97.7 F 82 20 140/78 97 09/17/18 04:00 97.8 F 76 19 137/63 88 L 09/17/18 00:00 98.3 F 78 18 163/72 92 L 09/16/18 23:12 98.3 F 78 18 163/72 92 L 09/16/18 22:13 70 20 128/63 95 09/16/18 21:16 96 09/16/18 21:04 73 16 121/50 95 09/16/18 20:09 82 18 135/75 96 09/16/18 18:19 97.8 F 77 16 144/69 96 09/16/18 18:13 72 16 144/69 93 L Home Medications Medication Instructions Recorded Confirmed Last Taken Type Ergocalciferol (Vitamin D2) 50,000 unit PO WEEKLY 09/16/18 09/16/18 09/11/18 History [Vitamin D2] Vits W-Ca,Fe,FA(<1Mg) 1 each PO HS 09/16/18 09/16/18 09/16/18 History [] Levofloxacin [Levaquin] 250 mg PO DAILY #5 tablet 09/17/18 Unknown Rx Current Medications Generic Name Dose Route Start Last Admin Trade Name Tristan PRN Reason Stop Dose Admin Acetaminophen 650 mg 09/16/18 21:21 Tylenol 325 Mg PO 10/16/18 21:20 Q4H PRN PRN PAIN AND/OR FEVER Hydrocodone Bitart/Acetaminophen 1 tab 09/17/18 12:00 Paradox 5/325 Mg PO 09/22/18 11:59 Q6HPRN PRN PAIN Apixaban 5 mg 09/16/18 22:00 09/17/18 09:49 Eliquis 2.5 Mg Tablet PO 10/16/18 21:59 5 mg BID [place] Administration Bumetanide 1 mg 09/17/18 10:00 09/17/18 09:49 Bumex 1 Mg PO 10/17/18 09:59 1 mg DAILY [place] Administration Ergocalciferol 50,000 unit 09/18/18 10:00 Vitamin D2 PO 10/18/18 09:59 ARCINIEGA [place] Sodium Chloride 1,000 mls @ 50 mls/hr 09/16/18 19:15 09/16/18 19:09 Sodium Chloride 0.9% 1000 Ml IV 10/16/18 19:14 50 mls/hr .Q20H [place] Administration Levofloxacin/Dextrose 500 mg in 100 mls @ 100 mls/hr 09/17/18 22:00 Levofloxacin 500mg/100ml D5w IV 10/17/18 21:59 Q24H22 [place] Isosorbide Mononitrate 30 mg 09/17/18 10:00 Imdur 30 Mg PO 10/17/18 09:59 DAILY [place] Levothyroxine Sodium 25 mcg 09/18/18 10:00 Synthroid 25 Mcg PO 10/18/18 09:59 DAILY [place] Magnesium Oxide 400 mg 09/17/18 22:00 Mag-Ox 400 PO 10/17/18 21:59 HS [place] Metoprolol Succinate 12.5 mg 09/17/18 10:00 09/17/18 09:49 Toprol-Xl 25mg Tablets PO 10/17/18 09:59 12.5 mg DAILY [place] Administration Non-Formulary Medication 1 each 09/18/18 10:00 Bisoprolol/Hydrochlorothiazide [Ziac 10-6.25 Mg Tablet] PO 10/18/18 09:59 DAILY [place] Non-Formulary Medication 20 mg 09/17/18 22:00 Pravastatin Sodium [Pravastatin Sodium] PO 10/17/18 21:59 HS [place] Non-Formulary Medication 1 each 09/17/18 22:00 Vits W-Ca,Fe,Fa(<1mg) [] PO 10/17/18 21:59 HS [place] Potassium Chloride 20 meq 09/17/18 12:15 Klor Con 10 Meq PO 10/17/18 12:14 DAILY [place] Discontinued Medications Generic Name Dose Route Start Last Admin Trade Name Freq PRN Reason Stop Dose Admin Hydrocodone Bitart/Acetaminophen 1 tab 09/16/18 21:27 Paradox 5/325 Mg PO 09/21/18 21:26 QID PRN PRN PAIN Ceftriaxone Sodium/Dextrose 1 g in 50 mls @ 100 mls/hr 09/16/18 21:11 21:25 Rocephin 1 Gm-D5w 50 Ml Bag IV 09/16/18 21:40 Not Given STAT STA Ceftriaxone Sodium/Dextrose Confirm 09/16/18 21:22 Rocephin 1 Gm-D5w 50 Ml Bag Administered 09/16/18 21:23 Dose 1 g in 50 mls @ ud IV .STK-MED ONE Levofloxacin/Dextrose 500 mg in 100 mls @ 100 mls/hr 09/16/18 22:00 09/16/18 22:07 Levofloxacin 500mg/100ml D5w IV 09/16/18 22:59 100 mls/hr STAT STA 100 mls/hr Administration Morphine Sulfate 1 mg 09/16/18 19:04 09/16/18 19:09 Morphine Sulfate 2 Mg Inj IV 09/16/18 19:05 1 mg STAT ONE Administration Morphine Sulfate Confirm 09/16/18 19:07 Morphine Sulfate 2 Mg Inj Administered 09/16/18 19:08 Dose 2 mg .ROUTE .STK-MED ONE Ondansetron HCl 4 mg 09/16/18 19:02 09/16/18 19:09 Zofran 4 Mg/2 Ml Vial IV 09/16/18 19:03 4 mg STAT ONE Administration Ondansetron HCl Confirm 09/16/18 19:07 Zofran 4 Mg/2 Ml Vial Administered 09/16/18 19:08 Dose 4 mg .ROUTE .STK-MED ONE Intake & Output (Last 24 hours) 09/15/18 09/16/18 09/17/18 09/18/18 11:59 11:59 11:59 11:59 Intake Total 713 Output Total 550 Balance 163 Weight 76.1 kg Microbiology Results (Last 24 hours) 09/16/18 19:22 Blood Blood Culture Gram Stain - Pending 09/16/18 19:22 Blood Blood Culture - Pending 09/16/18 19:15 Blood Blood Culture Gram Stain - Pending 09/16/18 19:15 Blood Blood Culture - Pending Laboratory Results (Last 24 hours) 09/16/18 09/16/18 09/16/18 19:34 19:14 19:14 WBC RBC Hgb Hct MCV MCH MCHC RDW Plt Count MPV Gran % Eos # (Auto) Absolute Lymphs (auto) Absolute Monos (auto) Lymphocytes % Monocytes % Eosinophils % Basophils % Absolute Granulocytes Basophils # PT INR Sodium 139 Potassium 3.4 L Chloride 101 Carbon Dioxide 27 Anion Gap 13.6 BUN 18 H Creatinine 0.97 Estimated GFR 58.2 Glucose 123 H Calcium 9.6 Total Bilirubin 0.50 AST 38 H ALT 16 Alkaline Phosphatase 89 Serum Total Protein 7.7 Albumin 3.9 Amylase 143 H Lipase 332 H Urine Color YELLOW Urine Appearance SLIGHTLY CLOUDY Urine pH 7.0 Ur Specific [place] 1.005 Urine Protein NEGATIVE Urine Ketones NEGATIVE Urine Blood NEGATIVE Urine Nitrite NEGATIVE Urine Bilirubin NEGATIVE Urine Urobilinogen NEGATIVE Ur Leukocyte Esterase NEGATIVE Urine WBC (Auto) NONE Urine RBC (Auto) NONE U Epithel Cells (Auto) NONE Urine Bacteria (Auto) NONE Urine Mucus (Auto) SLIGHT Urine Culture Reflexed NO Urine Glucose NEGATIVE 09/16/18 09/16/18 19:06 19:02 WBC 5.8 RBC 3.89 L Hgb 11.5 L Hct 35.4 MCV 91.0 MCH 29.5 MCHC 32.5 RDW 13.9 Plt Count 212 MPV 9.9 H Gran % 53.9 Eos # (Auto) 0.28 Absolute Lymphs (auto) 1.74 Absolute Monos (auto) 0.63 Lymphocytes % 30.1 Monocytes % 10.9 Eosinophils % 4.8 Basophils % 0.3 Absolute Granulocytes 3.11 Basophils # 0.02 PT 17.3 H INR 1.48 Sodium Potassium Chloride Carbon Dioxide Anion Gap BUN Creatinine Estimated GFR Glucose Calcium Total Bilirubin AST ALT Alkaline Phosphatase Serum Total Protein Albumin Amylase Lipase Urine Color Urine Appearance Urine pH Ur Specific [place] Urine Protein Urine Ketones Urine Blood Urine Nitrite Urine Bilirubin Urine Urobilinogen Ur Leukocyte Esterase Urine WBC (Auto) Urine RBC (Auto) U Epithel Cells (Auto) Urine Bacteria (Auto) Urine Mucus (Auto) Urine Culture Reflexed Urine Glucose Orders (Last 24 hours) Category Date Time Status Up With Assistance ROUTINE Activity 09/16/18 21:21 Active Clean Catch Urine Specimen STAT Care 09/16/18 19:02 Completed Code Status Order ROUTINE Care 09/16/18 21:21 Active IV Care Q6H Care 09/16/18 21:21 Active IV Insertion STAT Care 09/16/18 19:02 Completed Miscellaneous Nursing Order ROUTINE Care 09/17/18 11:[address] in Observation ROUTINE Care 09/16/18 21:21 Active Vital Signs Q4H Care 09/16/18 21:21 Active Exhibition Specialist/Discharge Plan Cons 09/16/18 23:46 Active Nutritional Admission Screen Diet 09/16/18 23:46 Active Discharge Routine Discharge 09/17/18 Ordered ABDOMEN AND PELVIS W/0 CONTRAS [CT] Stat Exams 09/16/18 19:04 Completed AMYLASE Stat Lab 09/16/18 19:14 Completed BLOOD CULTURE Stat Lab 09/16/18 19:22 Received CBC W DIFF Stat Lab 09/16/18 19:02 Completed CMP Stat Lab 09/16/18 19:14 Completed LIPASE Stat Lab 09/16/18 19:14 Completed PT INR [PROTIME WITH INR] Stat Lab 09/16/18 19:06 Completed UA W/RFX UR CULTURE Stat Lab 09/16/18 19:34 Completed Acetaminophen 325 mg [Tylenol 325 mg] Med 09/16/18 21:21 Active 650 mg PO Q4H PRN PRN Apixaban [Eliquis 2.5 mg Tablet] Med 09/16/18 22:00 Active 5 mg PO BID Bisoprolol/Hydrochlorothiazide [Ziac 10-6.25 mg Tablet] Med 09/18/18 10:00 Ordered 1 each PO DAILY Bumetanide 1 mg [Bumex 1 mg] Med 09/17/18 10:00 Active 1 mg PO DAILY Ceftriaxone 1 GM/50 ML PREMIX* [ROCEPHIN 1 Gm-D5w 50 ml Med 09/16/18 21:11 Discontinued Bag] 1 g in 50 ml IV STAT Ceftriaxone 1 GM/50 ML PREMIX* [ROCEPHIN 1 Gm-D5w 50 ml Med 09/16/18 21:22 Discontinued Bag] 1 g in 50 ml IV UD Ergocalciferol (Vitamin D2) [Vitamin D2] Med 09/18/18 10:00 Active 50,000 unit PO ARCINIEGA Hydrocodone/APAP 5/325 [Paradox 5/325 mg] Med 09/17/18 12:00 Active 1 tab PO Q6HPRN PRN Hydrocodone/APAP 5/325 [Paradox 5/325 mg] Med 09/16/18 21:27 Discontinued 1 tab PO QID PRN PRN Isosorbide Mononitrate 30 mg [Imdur 30 MG] Med 09/17/18 10:00 Active 30 mg PO DAILY Levofloxacin [Levofloxacin 500MG/100ML D5W] Med 09/17/18 22:00 Active 500 mg in 100 ml IV Q24H22 Levofloxacin [Levofloxacin 500MG/100ML D5W] Med 09/16/18 22:00 Discontinued 500 mg in 100 ml IV STAT Levothyroxine Sodium 25 Mcg [Synthroid 25 Mcg] Med 09/18/18 10:00 Ordered 25 mcg PO DAILY Magnesium Oxide 400 mg [Mag-Ox 400] Med 09/17/18 22:00 Active 400 mg PO HS Metoprolol Succinate 25 mg Xl* [Toprol-Xl 25MG Tablets* Med 09/17/18 10:00 Active ] 12.5 mg PO DAILY Morphine Sulfate 2 mg Inj Med 09/16/18 19:04 Discontinued 1 mg IV STAT ONE Morphine Sulfate 2 mg Inj Med 09/16/18 19:07 Discontinued 2 mg .ROUTE .STK-MED ONE NaCl 0.9% 1000 ml [Sodium Chloride 0.9% 1000 ML] 1,000 Med 09/16/18 19:15 Active ml IV 50 mls/hr Ondansetron HCl 4 mg/2 ml [Zofran 4 MG/2 ML VIAL] Med 09/16/18 19:07 Discontinued 4 mg .ROUTE .STK-MED ONE Ondansetron HCl 4 mg/2 ml [Zofran 4 MG/2 ML VIAL] Med 09/16/18 19:02 Discontinued 4 mg IV STAT ONE Potassium Chloride 10 Meq Tab* [Klor Con 10 MEQ] Med 09/17/18 12:15 Active 20 meq PO DAILY Pravastatin Sodium [Pravastatin Sodium] Med 09/17/18 22:00 Ordered 20 mg PO HS Vits W-Ca,Fe,FA(<1Mg) [] Med 09/17/18 22:00 Ordered 1 each PO HS Patient Care Notes (Last 24 hours) 09/17/18 08:55 (created 09/17/18 09:07) Nursing Note by Daniela Lopez Called Dr Bhat and reported pt HR of 138. Update on pt given. No new orders at this time. Initialized on 09/17/18 09:07 - END OF NOTE - Vitals & Intake/Output Vital Signs: Vital Signs Temperature 97.7 F 09/17/18 07:13 Pulse Rate 82 09/17/18 07:13 Respiratory Rate 20 09/17/18 07:13 Blood Pressure 140/78 09/17/18 07:13 O2 Sat by Pulse Oximetry 97 09/17/18 07:13 Oxygen-Last Documented O2 Percentage 2 Liters = 28% Intake & Output: Intake & Output 09/15/18 09/16/18 09/17/18 09/18/18 11:59 11:59 11:59 11:59 Intake Total 713 Output Total 550 Balance 163 Weight 76.1 kg - Lab Result Diagrams: 09/16/18 19:02 09/16/18 19:14 Lab Results-Last 24 Hrs: Lab Results-Last 24 Hours 09/16/18 09/16/18 09/16/18 Range/Units 19:02 19:06 19:14 WBC 5.8 (4.0-10.5) K/mm3 RBC 3.89 L (4.1-5.4) M/mm3 Hgb 11.5 L (12.0-16.0) gm/dl Hct 35.4 (35-47) % MCV 91.0 (78-100) fl MCH 29.5 (26-32) pg MCHC 32.5 (32-36) g/dl RDW 13.9 (11.5-14.0) % Plt Count 212 (150-450) K/mm3 MPV 9.9 H (6-9.5) fl Gran % 53.9 (36.0-66.0) % Eos # (Auto) 0.28 (0-0.5) Absolute Lymphs (auto) 1.74 (1.0-4.6) Absolute Monos (auto) 0.63 (0.0-1.3) Lymphocytes % 30.1 (24.0-44.0) % Monocytes % 10.9 (0.0-12.0) % Eosinophils % 4.8 (0.00-5.0) % Basophils % 0.3 (0.0-0.4) % Absolute Granulocytes 3.11 (1.4-6.9) Basophils # 0.02 (0-0.4) PT 17.3 H (9.95-12.35) SECONDS INR 1.48 (0.8-3.0) Sodium (137-145) mmol/L Potassium (3.5-5.1) mmol/L Chloride (98-107) mmol/L Carbon Dioxide (22-30) mmol/L Anion Gap (5-15) MEQ/L BUN (7-17) mg/dL Creatinine (0.52-1.04) mg/dL Estimated GFR ML/MIN Glucose (74-106) mg/dL Calcium (8.4-10.2) mg/dL Total Bilirubin (0.2-1.3) mg/dL AST (14-36) U/L ALT (0-35) U/L Alkaline Phosphatase (38-126) U/L Serum Total Protein (6.3-8.2) g/dL Albumin (3.5-5.0) g/dL Amylase 143 H (30-110) U/L Lipase 332 H (23-300) U/L Urine Color (YELLOW) Urine Appearance (CLEAR) Urine pH (5-6) Ur Specific [place] (1.005-1.025) Urine Protein (Negative) Urine Ketones (NEGATIVE) Urine Blood (0-5) Alverto/ul Urine Nitrite (NEGATIVE) Urine Bilirubin (NEGATIVE) Urine Urobilinogen (0-1) mg/dL Ur Leukocyte Esterase (NEGATIVE) Urine WBC (Auto) (0-5) /HPF Urine RBC (Auto) (0-2) /HPF U Epithel Cells (Auto) (FEW) /HPF Urine Bacteria (Auto) (NEGATIVE) /HPF Urine Mucus (Auto) (NEGATIVE) /HPF Urine Culture Reflexed (NO) Urine Glucose (NEGATIVE) mg/dL 09/16/18 09/16/18 Range/Units 19:14 19:34 WBC (4.0-10.5) K/mm3 RBC (4.1-5.4) M/mm3 Hgb (12.0-16.0) gm/dl Hct (35-47) % MCV (78-100) fl MCH (26-32) pg MCHC (32-36) g/dl RDW (11.5-14.0) % Plt Count (150-450) K/mm3 MPV (6-9.5) fl Gran % (36.0-66.0) % Eos # (Auto) (0-0.5) Absolute Lymphs (auto) (1.0-4.6) Absolute Monos (auto) (0.0-1.3) Lymphocytes % (24.0-44.0) % Monocytes % (0.0-12.0) % Eosinophils % (0.00-5.0) % Basophils % (0.0-0.4) % Absolute Granulocytes (1.4-6.9) Basophils # (0-0.4) PT (9.95-12.35) SECONDS INR (0.8-3.0) Sodium 139 (137-145) mmol/L Potassium 3.4 L (3.5-5.1) mmol/L Chloride 101 (98-107) mmol/L Carbon Dioxide 27 (22-30) mmol/L Anion Gap 13.6 (5-15) MEQ/L BUN 18 H (7-17) mg/dL Creatinine 0.97 (0.52-1.04) mg/dL Estimated GFR 58.2 ML/MIN Glucose 123 H (74-106) mg/dL Calcium 9.6 (8.4-10.2) mg/dL Total Bilirubin 0.50 (0.2-1.3) mg/dL AST 38 H (14-36) U/L ALT 16 (0-35) U/L Alkaline Phosphatase 89 (38-126) U/L Serum Total Protein 7.7 (6.3-8.2) g/dL Albumin 3.9 (3.5-5.0) g/dL Amylase (30-110) U/L Lipase (23-300) U/L Urine Color YELLOW (YELLOW) Urine Appearance SLIGHTLY CLOUDY (CLEAR) Urine pH 7.0 (5-6) Ur Specific [place] 1.005 (1.005-1.025) Urine Protein NEGATIVE (Negative) Urine Ketones NEGATIVE (NEGATIVE) Urine Blood NEGATIVE (0-5) Alverto/ul Urine Nitrite NEGATIVE (NEGATIVE) Urine Bilirubin NEGATIVE (NEGATIVE) Urine Urobilinogen NEGATIVE (0-1) mg/dL Ur Leukocyte Esterase NEGATIVE (NEGATIVE) Urine WBC (Auto) NONE (0-5) /HPF Urine RBC (Auto) NONE (0-2) /HPF U Epithel Cells (Auto) NONE (FEW) /HPF Urine Bacteria (Auto) NONE (NEGATIVE) /HPF Urine Mucus (Auto) SLIGHT (NEGATIVE) /HPF Urine Culture Reflexed NO (NO) Urine Glucose NEGATIVE (NEGATIVE) mg/dL - Radiology Exams Ordered Rad Exams-Entire Visit: Radiology Procedures Category Date Time Status ABDOMEN AND PELVIS W/0 CONTRAS [CT] Stat Exams 09/16/18 19:04 Completed - Discharge Discharge Date: 09/17/18 Disposition: Home, Self-Care Condition: Stable Prescriptions: New Levofloxacin [Levaquin] 250 mg PO DAILY #5 tablet Continue Levothyroxine Sodium [Synthroid] 25 mcg PO DAILY Bisoprolol/Hydrochlorothiazide [Ziac 10-6.25 mg Tablet] 1 each PO DAILY Isosorbide Mononitrate 30 mg [Imdur 30 MG] 30 mg PO DAILY Magnesium Oxide 400 mg [Mag-Ox 400] 400 mg PO HS Potassium Chloride 20 Meq [Klor-Con 20 MEQ] 20 meq PO DAILY Pravastatin Sodium 20 mg PO HS Apixaban [Eliquis 5 mg Tablet] 5 mg PO DAILY Bumetanide 1 mg [Bumex 1 mg] 1 mg PO DAILY Hydrocodone Bit/Acetaminophen [Paradox 5-325 Tablet] 1 each PO Q6HPRN PRN PRN Reason: Pain Vits W-Ca,Fe,FA(<1Mg) [] 1 each PO HS Ergocalciferol (Vitamin D2) [Vitamin D2] 50,000 unit PO WEEKLY Instructions: Urinary Tract Infections in Adults, Kidney Infection Additional Instructions: COME TO HOSPITAL ON WEDNESDAY, September FOR YOUR GALLBLADDER ULTRASOUND. FAT FREE DIET THE DAY BEFORE AND NOTHING TO EAT AFTER MIDNIGHT. Forms: Discharge Instructions
[2018-09-17] MEDS ORDERED: MEDICATION INTERVENTION MC SCH (12:15)
[2018-09-17] MEDS ORDERED: Klor Con 10 MEQ PO SCH (12:15)
[2018-09-17] MEDS ORDERED: SYNTHROID 25 MCG PO SCH (12:15)
[2018-09-17 12:19] VITALS: BP 125/72; PULSE 80; O2SAT 92
[2018-09-17] MEDS ORDERED: Levofloxacin 500MG/100ML D5W 500 MG/100 ML BAG IV SCH (22:00)
[2018-09-17] MEDS ORDERED: NON-FORMULARY ITEM (Prenatal Vits W-Ca,Fe,Fa(<1mg) [Prenatal] 1 EACH) PO SCH (22:00)
[2018-09-17] MEDS ORDERED: NON-FORMULARY ITEM (Pravastatin Sodium [Pravastatin Sodium] 20 MG) PO SCH (22:00)
[2018-09-17] MEDS ORDERED: THERAGRAN MULTIVITAMIN PO SCH (22:00)
[2018-09-17] MEDS ORDERED: MAG-OX 400 PO SCH (22:00)
[2018-09-17] MEDS ORDERED: ZOCOR 20MG PO SCH (22:00)
[2018-09-18] MEDS ORDERED: HYDROCHLOROTHIAZIDE PO SCH (10:00)
[2018-09-18] MEDS ORDERED: BISOPROLOL PO SCH (10:00)
[2018-09-18] MEDS ORDERED: NON-FORMULARY ITEM (Potassium Chloride 20 Meq [Klor-Con 20 Meq] 20 MEQ) PO SCH (10:00)
[2018-09-18] MEDS ORDERED: VITAMIN D2 PO SCH (10:00)
== END 2018-09-17 12:45 | disposition home or self-care (01) ==
LOC: ED 18:12 → MED SURG 22:36
PROVIDERS: ADMIT General Practice; ATTEND General Practice
DX: R10.31 Right lower quadrant pain (principal); N12 Tubulo-interstitial nephritis, not specified as acute or chronic; B96.20 Unspecified Escherichia coli [E. coli] as the cause of diseases classified elsewhere; E03.9 Hypothyroidism, unspecified; I10 Essential (primary) hypertension; E78.00 Pure hypercholesterolemia, unspecified; Z79.01 Long term (current) use of anticoagulants; Z79.899 Other long term (current) drug therapy
CPT/HCPCS: 36000; 36415; 74176; 80053; 81001; 82150; 83690; 85025; 85610; 87040; 96360; 96361; 96365; 96374; 96375; 99285; G0378; J0696; J1956; J2270; J2405; A9270-GY

== ENCOUNTER 2019-03-12 23:03 | Emergency (ER) | payer MEDICARE, OTHER ==
--- NOTE | 2019-03-13 02:02 | ERPHSYRPT ---
- History of Present Illness Source: patient Exam Limitations: no limitations Patient Subjective Stated Complaint: wednesday night fell down in the yard at 1830. pt states she had alot of pain at initial fall. pt states pain is less now. pt states she hurt her rt foot and is now non weight bearing Triage Nursing Assessment: bruising noted on foot around all toes. blistering noted at base of great toe. pt is non weight bearing on rt foot. states she has been sitting around since wednesday. was going to see her doctor tomorrow, but when blisters came up, she got worried. Physician History: Right foot pain, bruising and blisters on the right great toe. Method of Injury: fell Occurred: days ago (2) Quality: constant Severity of Pain-Max: moderate Severity of Pain-Current: moderate Lower Extremities Pain: foot: right, 1st toe: right Modifying Factors: Improves With: rest. Worsens With: movement Associated Symptoms: No unable to bear weight, No dizzy, No fainted, No snapping sensation, No popping sensation Allergies/Adverse Reactions: cephalexin monohydrate [From Keflex] Allergy (Verified 12/03/17 13:06) clindamycin Allergy (Verified 12/03/17 13:06) diclofenac [Diclofenac] Allergy (Verified 12/03/17 13:06) latex Allergy (Verified 12/03/17 13:06) Home Medications: Bisoprolol/Hydrochlorothiazide [Ziac 10-6.25 mg Tablet] 1 each PO DAILY [History] Levothyroxine Sodium [Synthroid] 25 mcg PO DAILY 07/07/13 [History] Isosorbide Mononitrate 30 mg [Imdur 30 MG] 30 mg PO DAILY 01/31/14 [History ] Magnesium Oxide 400 mg [Mag-Ox 400] 400 mg PO HS 02/09/16 [History] Potassium Chloride 20 Meq [Klor-Con 20 MEQ] 20 meq PO DAILY 02/09/16 [History] Apixaban [Eliquis 5 mg Tablet] 5 mg PO DAILY 11/21/16 [History] Pravastatin Sodium 20 mg PO HS 11/21/16 [History] Bumetanide 1 mg [Bumex 1 mg] 1 mg PO DAILY 12/03/17 [History] Hydrocodone Bit/Acetaminophen [Bryan 5-325 Tablet] 1 each PO Q6HPRN PRN [History] Ergocalciferol (Vitamin D2) [Vitamin D2] 50,000 unit PO WEEKLY 09/16/18 [History ] Vits W-Ca,Fe,FA(<1Mg) [] 1 each PO HS 09/16/18 [History] Hx Tetanus, Diphtheria Vaccination/Date Given: No Hx Influenza Vaccination/Date Given: Yes Hx Pneumococcal Vaccination/Date Given: Yes Immunizations Up to Date: Yes - Review of Systems Constitutional: No Fever, No Chills Eyes: No Eye Pain Ears, Nose, & Throat: No Nose Pain, No Mouth Pain Respiratory: No Cough, No Dyspnea Cardiac: No Chest Pain, No Edema, No Syncope Abdominal/Gastrointestinal: No Abdominal Pain, No Nausea, No Vomiting, No Diarrhea Genitourinary Symptoms: No Dysuria, No Hematuria, No Flank Pain Musculoskeletal: No Back Pain, No Neck Pain Skin: No Rash Neurological: No Dizziness, No Focal Weakness, No Sensory Changes Psychological: No Symptoms Endocrine: No Symptoms Hematologic/Lymphatic: No Easy Bleeding All Other Systems: Reviewed and Negative - Past Medical History Pertinent Past Medical History: Yes Neurological History: No Pertinent History ENT History: No Pertinent History Cardiac History: Angina, Arrhythmia, High Cholesterol, Hypertension Respiratory History: Bronchitis, Pneumonia Endocrine Medical History: Hypothyroidism Musculoskeletal History: Arthritis GI Medical History: No Pertinent History History: Other Psycho-Social History: No Pertinent History Female Reproductive Disorders: No Pertinent History Other Medical History: URINARY INCONTINENCE - Past Surgical History Past Surgical History: Yes Neuro Surgical History: No Pertinent History Cardiac: No Pertinent History Respiratory: No Pertinent History Gastrointestinal: Other Genitourinary: No Pertinent History Musculoskeletal: Orthopedic Surgery Female Surgical History: No Pertinent History Other Surgical History: HUMEROUS REPAIR, ROTATOR CUFF REPAIR. BLADDER TIE-UP. COLONOSCOPY MAR 04 - Social History Smoking Status: Never smoker Exposure to second hand smoke: No Drug Use: none Patient Lives Alone: No - Female History Hx Now: No - Nursing Vital Signs Nursing Vital Signs: Initial Vital Signs Temperature 97.2 F 03/12/19 23:47 Pulse Rate 80 03/12/19 23:47 Respiratory Rate 18 03/12/19 23:47 Blood Pressure 166/78 03/12/19 23:47 O2 Sat by Pulse Oximetry 93 L 03/12/19 23:47 Pain Scale Pain Intensity 5 - Physical Exam General Appearance: no apparent distress, alert Eyes, Ears, Nose, Throat Exam: moist mucous membranes Neck Exam: non-tender, supple Cardiovascular/Respiratory Exam: chest non-tender, normal breath sounds, regular rate/rhythm, no respiratory distress Gastrointestinal/Abdominal Exam: non-tender, guarding Back Exam: normal inspection, No vertebral tenderness Hips Exam: bilateral: non-tender, normal inspection, normal range of motion, no evidence of injury Legs Exam: bilateral leg: non-tender, normal inspection, normal range of motion , no evidence of injury Knees Exam: bilateral knee: non-tender, normal inspection, normal range of motion, no evidence of injury Ankle Exam: bilateral ankle: non-tender, normal inspection, normal range of motion, no evidence of injury Foot Exam: right foot: bone tenderness, ecchymosis, pain, soft tissue tenderness , swelling (blisters on the right great toe), left foot: non-tender, normal inspection, normal range of motion, no evidence of injury DTR - Lower Extremities Exam: ankle (R): 2+, ankle (L): 2+ Neuro/Tendon Exam: normal sensation, normal motor functions Mental Status Exam: alert, oriented x 3, cooperative Skin Exam: normal color, warm, dry, ecchymosis (dorsum of right foot and toes 1, 2,3), No abrasion, No laceration SpO2 Interpretation: normal SpO2: 94 O2 Delivery: Room Air Ordered Tests: Active Orders 24 hr Category Date Time Status Splint STAT Care 03/13/19 01:56 Ordered FOOT (MINIMUM 3 VIEWS) Stat Exams 03/13/19 00:44 Taken - Progress Progress Note: 03/13/19 02:07 Post-op shoe given to the patient for comfort. Non-stick dressing to the right great toe blisters. - Departure Departure Disposition: Home Clinical Impression: Right foot pain Blister of great toe of right foot Qualifiers: Encounter type: initial encounter Qualified Code(s): S90.421A - Blister ( nonthermal), right great toe, initial encounter Traumatic ecchymosis of right foot Qualifiers: Encounter type: initial encounter Qualified Code(s): S90.31XA - Contusion of right foot, initial encounter Hypertension Qualifiers: Hypertension type: essential hypertension Qualified Code(s): I10 - Essential ( primary) hypertension Condition: Good Critical Care Time: No Referrals: RAUL GAYTAN MD [Primary Care Provider] - Follow Up with PCP/3 days Instructions: Contusion (DC), Foot Sprain (DC), Blisters, Tdap Vaccine Additional Instructions: Your foot x-rays are negative per ED physician interpretation. We will call you if the radiologist read your films differently from the emergency department attending interpretation. Return if any worse at any time including increasing pain, further discoloration, or inability to weight-bear or any other concerning signs or symptoms there were not present at today's visit for immediate reevaluation in the emergency department. Do not open the blisters on your own. Your tetanus was boosted in the emergency department today.
[2019-03-13] MEDS ORDERED: Adacel Vial IM ONE ×2 (02:09→02:11)
[2019-03-13 03:22] VITALS: BP 149/90; PULSE 86; O2SAT 92
--- NOTE | 2019-03-13 19:26 | XRAY ---
Exam: 3 views of the right foot from 03/13/2019. Comparison: No prior images of the right foot. Indication: Injured right foot 2 days ago, bruising of the toes with blisters between first and second toes. Findings: AP, oblique, and lateral images of the right foot are submitted for evaluation. There is demineralization of the right foot. I note mild to moderate soft tissue swelling overlying the dorsal aspect of the right forefoot on the lateral radiograph. In addition, there appears to be a 3 mm chip avulsion fracture injury arising from the lateral aspect of the base of the proximal phalanx of the right great toe. The avulsed fragment is displaced about 6 mm in the lateral direction. The exact age of this fracture is unknown, but it could be acute. I see no other fracture or dislocation. There is some atherosclerotic vascular calcification between the first and second metatarsals. There appears to be a small spur or exostosis along the medial aspect of the base of the right second toe. There is slight narrowing of the first MTP joint. The tarsals align correctly with the metatarsals. Moderate plantar and posterior calcaneal spurring is seen. There is also a hypertrophic spur along the distal dorsal aspect of the talus. Other mild marginal osteoarthritic spurring is seen within the joints of the right hindfoot. There is a mild pes planus. No radiopaque soft tissue foreign body is seen. Impression: 1. There is a 3 mm in diameter chip fracture fragment avulsed off the lateral aspect of the base of the proximal phalanx of the right great toe. It is displaced about 6 mm laterally. The exact age of this fracture is unknown, but it could be acute. 2. No other acute fracture or dislocation of the right foot is seen. 3. Numerous other incidental findings, as discussed above. Note: I called this report to the emergency department nurse at 7:15 PM on 03/13/2019.
== END 2019-03-13 02:35 | disposition home or self-care (01) ==
LOC: ED 23:03
DX: M79.671 Pain in right foot (principal); S90.421A Blister (nonthermal), right great toe, initial encounter; S90.31XA Contusion of right foot, initial encounter; I10 Essential (primary) hypertension; W19.XXXA Unspecified fall, initial encounter; Y93.89 Activity, other specified; Y92.096 Garden or yard of other non-institutional residence as the place of occurrence of the external cause; Z79.01 Long term (current) use of anticoagulants; Z79.899 Other long term (current) drug therapy; E78.00 Pure hypercholesterolemia, unspecified; E03.9 Hypothyroidism, unspecified; M19.90 Unspecified osteoarthritis, unspecified site
CPT/HCPCS: 73630; 90471; 90715; 99284

== ENCOUNTER 2021-11-04 08:57 | Day surgery (SDC) | payer MEDICARE, OTHER ==
[~2021-11-04 08:57] MED LIST: Ak-Dilate OPHTHALMIC*** 1.065 ML, Cyclogyl 1% OPHTH SOL 1.065 ML, GATIFLOXACIN 0.5% OPH... OP ONE; BETADINE 5% OPHTHALMIC 30 ML OP ONE; Lactated Ringers 1,000 ML IV SCH; NON-FORMULARY ITEM OP ONE; TETRACAINE 0.5% STERI-UNIT SOL OP ONE
[2021-11-04 09:18] VITALS: O2SAT 94
[2021-11-04] MEDS ORDERED: Lactated Ringers 1,000 ML IV ONE (09:19)
[2021-11-04] MEDS ORDERED: Visionblue IO ONE (10:30)
[2021-11-04] MEDS ORDERED: Epinephrine Preservative Free 1 MG/ML IJ ONE (10:30)
[2021-11-04] MEDS ORDERED: LIDOCAINE HCL 1% 50 MG/5 ML VL PF IJ ONE (10:30)
[2021-11-04] MEDS ORDERED: Zofran 4 MG/2 ML VIAL IV PRN (10:30)
[2021-11-04] MEDS ORDERED: cefUROXime sodium 0.005 GM in Sodium Chloride Flush 30 ML*** 0.5 ML IJ ONE (10:30)
[2021-11-04] MEDS ORDERED: ACETAZOLAMIDE 250 MG TABLET PO ONE (10:30)
[2021-11-04] MEDS ORDERED: DIPRIVAN 200 MG/20 ML IV ONE (10:43)
[2021-11-04 11:36] VITALS: BP 149/71; PULSE 72
== END 2021-11-04 11:45 | disposition home or self-care (01) ==
LOC: SDC 08:57
PROVIDERS: ATTEND Ophthalmology
DX: H25.811 Combined forms of age-related cataract, right eye (principal)
CPT/HCPCS: 93005; C1780; J0171; J2001; J2704; A9270-GY

== ENCOUNTER 2021-12-09 10:21 | Day surgery (SDC) | payer MEDICARE, OTHER ==
[~2021-12-09 10:21] MED LIST changes: +cefUROXime sodium 0.005 GM in Sodium Chloride Flush 30 ML*** 0.5 ML IJ ONE
[2021-12-09] MEDS ORDERED: LIDOCAINE HCL 1% 50 MG/5 ML VL PF IJ ONE (10:22)
[2021-12-09] MEDS ORDERED: Epinephrine Preservative Free 1 MG/ML IJ ONE (10:22)
[2021-12-09] MEDS ORDERED: Lactated Ringers 1,000 ML IV ONE (10:39)
[2021-12-09] MEDS ORDERED: DIPRIVAN 200 MG/20 ML IV ONE (12:04)
[2021-12-09] MEDS ORDERED: ACETAZOLAMIDE 250 MG TABLET PO ONE (12:30)
[2021-12-09] MEDS ORDERED: Zofran 4 MG/2 ML VIAL IV PRN (12:30)
[2021-12-09 13:29] VITALS: O2SAT 93
[2021-12-09 13:31] VITALS: BP 135/63; PULSE 80
== END 2021-12-09 13:25 | disposition home or self-care (01) ==
LOC: SDC 10:21
PROVIDERS: ATTEND Ophthalmology
DX: H25.812 Combined forms of age-related cataract, left eye (principal)
CPT/HCPCS: 99100; C1780; J0171; J2001; J2704; A9270-GY